=== PATIENT | female | born 1940 | race Caucasian/White ===

== ENCOUNTER 2019-05-12 18:27 | Emergency (ER) ==
[2019-05-12 18:33] VITALS: TEMP 99.4; BMI 18.0
[2019-05-12] MEDS ORDERED: NORFLEX IM STA (18:48)
[2019-05-12] MEDS ORDERED: NORCO 5-325 PO STA (18:48)
[2019-05-12] MEDS ORDERED: CATAPRES PO STA (18:51)
--- NOTE | 2019-05-12 19:25 | CT ---
EXAM: CT of the cervical spine without contrast. HISTORY: Pain. No history of trauma. PROCEDURE: Contiguous axial CT images of the cervical spine with coronal and sagittal reformats. FINDINGS: There is 2 mm anterolisthesis of C4 on C5. There is normal alignment of the cervical facet s. The vertebral body heights are maintained. There is multilevel disc space narrowing. There are posterior osteophytes at multiple levels of the cervical spine. There are small disc bulges at C2-3, C4-5 and C5-6. There is multilevel facet arthropathy. No evidence of fracture. The C1-2 relations hip is maintained. No prevertebral soft tissue abnormality. Impression: Multilevel disc bulges as described. 2 mm anterolisthesis of C4 on C5 secondary to facet arthropathy. Multilevel degenerative changes as described.
--- NOTE | 2019-05-12 19:48 | ED.PDOC ---
General ED Provider: Dr. MYRNA MARIA-ER Chief Complaint: Neck Pain Non-Injury Stated Complaint: my neck hurts to move Time Seen by Physician: 18:40 Mode of Arrival: Walk-In Information Source: Patient, Family Exam Limitations: No limitations Nursing and Triage Documentation Reviewed and Agree: Yes Does patient meet sepsis criteria?: No System Inflammatory Response Syndrome: Not Applicable Sepsis Protocol: For patient's 13 years and over: Temp is 96.8 and below OR 101 and greater Pulse >90 BPM Resp >20/minute Acutely Altered Mental Status Are patient's symptoms suggestive of a new infection, such as: -Pneumonia -Skin, Soft Tissue -Endocarditis -UTI -Bone, Joint Infection -Implantable Device -Acute Abdominal Infection -Wound Infection -Meningitis -Blood Stream Catheter Infection -Unknown Musculoskeletal Complaint Exam - Neck Pain Complaint/Exam Mechanism of Injury: Reports: No known trauma Onset/Duration: several hours Symptoms Are: Still present Timing: Constant Initial Severity: Mild Current Severity: Mild Location: Reports: Discrete (right posterior neck) Character: Reports: Dull, Aching, Spasmodic, Stiffness Aggravating: Reports: Movement Alleviating: Reports: None Associated Signs and Symptoms: Denies: Swelling, Redness, Bruising, Fever, Nuchal rigidity, Weakness, Headache, Paresthesia Meningitis Risk Factors: Reports: None Cervical Spine Injury Risk Factors: Reports: None Related Surgical History: Reports: None Carotid Bruit Present: No Pain on Passive Flexion: Yes Positive Kernig's Sign: No ROM Limited In: Present: Flexion, Extension Pain Located at: right posterior neck Tenderness: Present: Paraspinal Focal Weakness: Present: None Focal Sensory Loss: Reports: None Differential Diagnoses: Sprain, Strain Review of Systems - Review Of Systems Constitutional: Reports: No symptoms Eyes: Reports: No symptoms Ears, Nose, Mouth, Throat: Reports: No symptoms Respiratory: Reports: No symptoms Cardiac: Reports: No symptoms GI: Reports: No symptoms : Reports: No symptoms Musculoskeletal: Reports: Muscle pain, Muscle stiffness, Neck pain Skin: Reports: No symptoms Neurological: Reports: No symptoms Endocrine: Reports: No symptoms Hematologic/Lymphatic: Reports: No symptoms All Other Systems: Reviewed and Negative Past Medical History - Past Medical History Previously Healthy: No Endocrine: Reports: Other Cardiovascular: Reports: A-Fib Respiratory: Reports: Unknown Hematological: Reports: Unknown Gastrointestinal: Reports: Unknown Genitourinary: Reports: Unknown Neuro/Psych: Reports: Unknown Musculoskeletal: Reports: Unknown Cancer: Reports: Unknown Last Menstrual Period: menopause - Surgical History General Surgical History: Reports: Unknown - Family History Family History: Reports: Unknown - Social History Smoking Status: Never smoker Hx Substance Use: No Alcohol Screening: None Physical Exam - Physical Exam Appearance: Well-appearing, No pain distress, Well-nourished Pain Distress: Mild Eyes: [place], EOMI, Conjunctiva clear ENT: Ears normal, Nose normal, Oropharynx normal Neck: Supple Respiratory: Airway patent, Breath sounds clear, Breath sounds equal, Respirations nonlabored Cardiovascular: RRR, Pulses normal, No rub, No murmur GI/: Soft, Nontender, No masses, Bowel sounds normal, No Organomegaly Musculoskeletal: Limited ROM Skin: Warm Neurological: Sensation intact Psychiatric: Affect appropriate, Mood appropriate, Anxious Interpretation - Radiology Interpretation Radiology Interpretation By: Radiologist Radiology Results: Positive Exam Interpreted: CT Scan Critical Care Note - Critical Care Note Total Time (mins): 0 Course - Course Orders, Labs, Meds: Orders Category Date Time Status 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] .ONCE EMERGENCY 05/12/19 19:03 Active Clonidine HCl [Catapres] MEDS 05/12/19 18:51 Discontinued 0.1 mg PO ONCE STA Hydrocodone Bit/Acetaminophen [[place] 5-325] MEDS 05/12/19 18:48 Discontinued 0.5 tab PO ONCE STA Orphenadrine Citrate [Norflex] MEDS 05/12/19 18:48 Discontinued 60 mg IM ONCE STA CT CERVICAL SPINE W/O CONTRAST Stat RADS 05/12/19 18:48 Completed Medications Discontinued Medications Generic Name Dose Route Start Last Admin Trade Name Debbie PRN Reason Stop Dose Admin Hydrocodone Bitart/Acetaminophen 0.5 tab 05/12/19 18:48 05/12/19 19:08 [place] 5-325 PO 05/12/19 18:49 0.5 tab ONCE STA Administration Clonidine 0.1 mg 05/12/19 18:51 05/12/19 19:06 Catapres PO 05/12/19 18:52 0.1 mg ONCE STA Administration Orphenadrine Citrate 60 mg 05/12/19 18:48 05/12/19 19:10 Norflex IM 05/12/19 18:49 60 mg ONCE STA Administration Vital Signs: Temp Pulse Resp BP Pulse Ox 05/12/19 18:55 217/88 H 05/12/19 18:27 99.4 F 66 20 205/71 H 95 Departure - Departure Time of Disposition: 19:50 Disposition: HOME SELF-CARE Discharge Problem: Neck pain Instructions: Acute Neck Pain (ED), Neck Pain (ED) Condition: Good Pt referred to PMD for follow-up: Yes IPMP verified?: No Allergies/Adverse Reactions: Allergies antibiotics Adverse Reaction (Uncoded 05/12/19 18:36) pain meds Adverse Reaction (Uncoded 05/12/19 18:36) Home Medications: Ambulatory Orders Apixaban [Eliquis] 5 mg PO BID 05/12/19 Digoxin 125 mcg PO DAILY 05/12/19 Disposition Discussed With: Patient, Family
[2019-05-12 19:50] VITALS: BP 199/81
== END 2019-05-12 20:10 | disposition home or self-care (01) ==
LOC: ED 18:27
DX: M54.2 Cervicalgia (principal)
CPT/HCPCS: 96372; 99283

== ENCOUNTER 2021-05-06 08:33 | Inpatient (IN) ==
--- NOTE | 2021-05-06 08:58 | ED.PDOC ---
General ED Provider: Dr. MAHSA PHILLIPS Chief Complaint: Arrhythmia Stated Complaint: Palpitations Time Seen by Provider: 05/06/21 08:45 Mode of Arrival: Walk-In Information Source: Patient Exam Limitations: No limitations Primary Care Provider: HERB PANDYA - not established yet. Nursing and Triage Documentation Reviewed and Agree: Yes Does patient meet sepsis criteria?: No System Inflammatory Response Syndrome: Not Applicable Sepsis Protocol: For patient's 13 years and over: Temp is 96.8 and below OR 101 and greater Pulse >90 BPM Resp >20/minute Acutely Altered Mental Status Are patient's symptoms suggestive of a new infection, such as: -Pneumonia -Skin, Soft Tissue -Endocarditis -UTI -Bone, Joint Infection -Implantable Device -Acute Abdominal Infection -Wound Infection -Meningitis -Blood Stream Catheter Infection -Unknown Cardiovascular Complaint Exam Palpitations Complaint/Exam Onset/Duration: During the night. Symptoms Are: Still present Timing: Constant Initial Severity: Moderate Current Severity: Moderate Character: Reports Fast and Irregular Aggravating: Reports None Alleviating: Reports None Associated Signs and Symptoms: Reports Dizziness (minor); Denies Lightheadedness, Syncope, Chest pain, Shortness of breath, Diaphoresis, Nausea and Vomiting Related History: Similar episode (Apparently not, poor historian.) Related Surgical History: Reports None Cardiac Risk Factors: Reports Hypertension Pulmonary Embolism Risk Factors: Reports None Atrial Fibrillation Risk Factors: Reports Hypertension Thyroid Exam: Normal Differential Diagnoses: Cardiomyopathy, Medication induced, Myocarditis, Panic Disorder, Hyperventilation, Paroxysmal SVT, VT and Pulmonary Embolismn Quality Indicator For Non-Traumatic Chest Pain/Syncope: EKG Performed Review of Systems Review Of Systems Constitutional: Reports No symptoms Eyes: Reports No symptoms Ears, Nose, Mouth, Throat: Reports No symptoms Respiratory: Reports No symptoms Cardiac: Reports Irregular heart rate and Palpitations GI: Reports No symptoms : Reports No symptoms Musculoskeletal: Reports No symptoms Skin: Reports No symptoms Neurological: Reports No symptoms Endocrine: Reports No symptoms Hematologic/Lymphatic: Reports No symptoms All Other Systems: Reviewed and Negative PFSH Female Reproductive History Menstrual Hx Hysterectomy: Yes Hx Tubal Ligation: No Physical Exam Physical Exam Appearance: Reports Well-appearing and Thin Ill-appearing: None Pain Distress: None Eyes: Reports [place] ENT: Reports Oropharynx normal Neck: Supple Respiratory: Reports Airway patent, Breath sounds clear and Breath sounds equal Cardiovascular: Reports Irregular rhythm and Tachycardia GI/: Reports Soft and Nontender Musculoskeletal: Reports Normal strength, ROM intact and No edema Skin: Reports Warm, Dry and Normal color Neurological: Reports Sensation intact, Motor intact, Alert and Oriented Psychiatric: Reports Affect appropriate and Mood appropriate Interpretation Radiology Interpretation Radiology Interpretation By: Radiologist Radiology Results: Positive Exam Interpreted: Portable CXR Xray Comments: CMG without CHF 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 Gardner Time of Notification: 11:30 Admit/Transition Orders Entered by ED Provider: Yes Reviewed With: Dr. Gadrner Admit To: Inpatient Critical Care Note Critical Care Note Total Critical Care Time (mins): 30 Comments: Diagnosis and management of Atrial fibrillation with rapid ventricular rate. Stat medications, evaluation, consult with PCP. Course Course Hematology/Chemistry: 05/06/21 09:14 05/06/21 09:14 Orders, Labs, Meds: Lab Review 05/06/21 05/06/21 05/06/21 09:14 09:14 09:14 WBC 5.46 RBC 4.18 L Hgb 12.9 Hct 37.6 MCV 90.0 MCH 30.9 MCHC 34.3 RDW Coeff of Philippe 13.2 Plt Count 192 Immature Gran % (Auto) 0.2 Neut % (Auto) 75.8 H Lymph % (Auto) 16.8 [place] % (Auto) 6.8 Eos % (Auto) 0.2 Baso % (Auto) 0.2 Neut # (Auto) 4.1 Lymph # (Auto) 0.9 [place] # (Auto) 0.4 Eos # (Auto) 0.0 Baso # (Auto) 0.0 Immature Gran # (Auto) 0.0 PT 10.3 INR 0.97 APTT 25.4 Sodium 135.2 Potassium 4.01 Chloride 100.2 Carbon Dioxide 27.8 Anion Gap 11.21 BUN 17.2 H Creatinine 0.68 Estimated GFR (MDRD) 83.00 BUN/Creatinine Ratio 25.29 Glucose 108.7 H Calcium 9.34 Total Bilirubin 0.45 AST 57.8 H ALT 65.9 H Alkaline Phosphatase 120.4 Troponin I < 0.012 NT-Pro-B Natriuret Pep 1980.000 H Total Protein 6.83 Albumin 4.42 Globulin 2.41 Albumin/Globulin Ratio 1.83 Orders Category Date Time Status EKG-(ED ONLY) Stat CARDIO 05/06/21 08:58 Ordered Saline Lock [ED IV/MEDIPORT/POWERPORT] .ONCE EMERGENCY 05/06/21 08:58 Active CBC W/ AUTO DIFF Stat LAB 05/06/21 08:58 Ordered COMPREHENSIVE METABOLIC PANEL Stat LAB 05/06/21 09:14 Received NT-PROBNP Stat LAB 05/06/21 09:14 Received PARTIAL THROMBOPLASTIN TIME Stat LAB 05/06/21 09:14 Received PT WITH INR Stat LAB 05/06/21 09:14 Received TROPONIN I Stat LAB 05/06/21 09:14 Received 0.9 % Sodium Chloride [Saline Flush] MEDS 05/06/21 08:58 Active 1 syr IVF PRN PRN Aspirin [Aspirin Chewable] MEDS 05/06/21 09:20 Discontinued 81 mg PO ONCE ONE Diltiazem HCl [Cardizem Inj] MEDS 05/06/21 09:20 Discontinued 15 mg IVP ONCE ONE Diltiazem HCl [Cardizem] 125 mg MEDS 05/06/21 10:00 Active 0.9 % Sodium Chloride [Sodium Chloride] 100 ml IV TITRATION CHEST, 1V AP ONLY Stat RADS 05/06/21 08:58 Ordered Medications Generic Name Dose Route Start Last Admin Trade Name Freq PRN Reason Stop Dose Admin Diltiazem HCl 125 mg/ Sodium 125 mls @ 5 mls/hr 05/06/21 10:00 05/06/21 10:19 Chloride IV 5 mg/hr TITRATION CHINTAN 5 mls/hr Administration Protocol 5 MG/HR Sodium Chloride 1 syr 05/06/21 08:58 05/06/21 09:35 0.9% Sodium Chloride 10 Ml Disp.Syrin IVF 1 syr PRN PRN Administration To flush IV Discontinued Medications Generic Name Dose Route Start Last Admin Trade Name Freq PRN Reason Stop Dose Admin Aspirin 81 mg 05/06/21 09:20 05/06/21 09:27 Aspirin 81 Mg Tab.Chew PO 05/06/21 09:21 81 mg ONCE ONE Administration Diltiazem HCl 15 mg 05/06/21 09:20 05/06/21 09:28 Diltiazem Hcl Inj 25 Mg/5 Ml Vial IVP 05/06/21 09:21 15 mg ONCE ONE Administration Vital Signs: Temp Pulse Resp BP Pulse Ox 05/06/21 08:41 98.0 F 149 H 20 160/99 H 99 CHRISTIAN Risk Score CHRISTIAN Risk Score: Risk Score Odds of by 30D 0 0.1 (0.1-0.2) 1 0.3 (0.2-0.3) 2 0.4 (0.3-0.5) 3 0.7 (0.6-0.9) 4 1.2 (1.0-1.5) 5 2.2 (1.9-2.6) 6 3.0 (2.5-3.6) 7 4.8 (3.8-6.1) Discharge Plan Discharge Patient Disposition: ADMITTED INPATIENT Discharge Problem: Atrial fibrillation with rapid ventricular response ED Provider: MAHSA PHILLIPS Condition: Stable Physician Progress Note: [She is new onset Afib RVR responding to cardizem IV. No established PCP, her sees Dr. Gardner and they want him contacted and he accepted. Work-up unremarkable. Dr. Gardner assumed her care while she was still in ED. He wanted her to have a dose of oral cardizem, I placed the order. Patient stable. Going to med surg on telemetry.]
[2021-05-06 09:18] LABS: BASOPHILS % (AUTO) 0.2 % (0.0-3.0); EOSINOPHILS % (AUTO) 0.2 % (0.0-7.0); HEMATOCRIT 37.6 % (37.0-47.0); HEMOGLOBIN 12.9 g/dl (12.0-16.0); IMMATURE GRANULOCYTE % (AUTO) 0.2 % (0.0-5.0); LYMPHOCYTES # (AUTO) 0.9 K/uL (0.60-3.4); LYMPHOCYTES % (AUTO) 16.8 (10.0-50.0); MEAN CORPUSCULAR HEMOGLOBIN 30.9 pg (27.0-31.0); MEAN CORPUSCULAR HGB CONC 34.3 (31.8-35.4); MONOCYTES # (AUTO) 0.4 K/uL (0.4-2.0); MONOCYTES % (AUTO) 6.8 (0-10); NEUTROPHILS # (AUTO) 4.1 K/ul (2.0-6.9); NEUTROPHILS % (AUTO) 75.8 % (42.2-75.2); PLATELET COUNT 192 10^3/uL (140-440); RDW COEFFICIENT OF VARIATION 13.2 % (11.6-14.8); RED BLOOD COUNT 4.18 10^6/ul (4.20-5.40); WHITE BLOOD COUNT 5.46 K/ul (4.6-10.2)
[2021-05-06] MEDS ORDERED: ASPIRIN CHEWABLE PO ONE (09:20)
[2021-05-06] MEDS ORDERED: CARDIZEM INJ IVP ONE (09:20)
[2021-05-06 09:30] LABS: ALANINE AMINOTRANSFERASE 65.9 U/L (0-35); ALBUMIN 4.42 g/dL (3.5-5.0); ALKALINE PHOSPHATASE 120.4 U/L (53-141); ASPARTATE AMINO TRANSFERASE 57.8 U/L (14-36); BILIRUBIN,TOTAL 0.45 mg/dL (0.2-1.3); BLOOD UREA NITROGEN 17.2 mg/dL (7-17); CALCIUM 9.34 mg/dL (8.4-10.2); CARBON DIOXIDE 27.8 mmol/L (22-30.0); CHLORIDE 100.2 mmol/L (98-107); CREATININE 0.68 mg/dL (0.60-1.30); GLUCOSE 108.7 mg/dL (74-106); POTASSIUM 4.01 mmol/L (3.5-5.1); SODIUM 135.2 mmol/L (134.5-145); TOTAL PROTEIN 6.83 g/dL (6.3-8.2)
[2021-05-06 09:32] LABS: PARTIAL THROMBOPLASTIN TIME 25.4 SEC (23.9-40.0); PROTHROMBIN TIME 10.3 SEC (9.3-11.0)
--- NOTE | 2021-05-06 09:36 | DI ---
EXAM: CHEST FRONTAL VIEW HISTORY: Palpitations COMPARISON: None FINDINGS: Prominent heart size. There is at least mild atherosclerotic disease. No acute infiltrat es are seen. No vascular congestion. There is no consolidation, visible pleural fluid or pneumothor ax. Bones reveal no acute fracture. IMPRESSION: Prominent heart size. No vascular congestion or acute infiltrates.
[2021-05-06 09:42] LABS: TROPONIN I < 0.012 ng/ml (0.0000-0.120)
[2021-05-06] MEDS ORDERED: CARDIZEM 125 MG in SODIUM CHLORIDE 100 ML IV SCH ×2 (10:00→15:00)
[2021-05-06] MEDS ORDERED: LOVENOX SUBCUT ONE (11:21)
[2021-05-06] MEDS ORDERED: ATROPINE SULFATE PFS IVP PRN ×2 (11:47→14:19)
[2021-05-06] MEDS ORDERED: NITROSTAT SL PRN ×2 (11:47→14:19)
[2021-05-06] MEDS ORDERED: TYLENOL PO PRN ×3 (11:47→21:27)
[2021-05-06 11:51] LABS: BORDETELLA PARAPERTUSSIS (PCR) NOT DETECTED (NOT DETECT); BORDETELLA PERTUSSIS (PCR) NOT DETECTED (NOT DETECT); CHLAMYDIA PNEUMONIAE (PCR) NOT DETECTED (NOT DETECT); CORONAVIRUS 229E (PCR) NOT DETECTED (NOT DETECT); CORONAVIRUS HKU1 (PCR) NOT DETECTED (NOT DETECT); CORONAVIRUS NL63 (PCR) NOT DETECTED (NOT DETECT); CORONAVIRUS OC43 (PCR) NOT DETECTED (NOT DETECT); HUMAN METAPNEUMOVIRUS (PCR) NOT DETECTED (NOT DETECT); HUMAN RHINOVIRUS/ENTEROV (PCR) NOT DETECTED (NOT DETECT); INFLUENZA B (PCR) NOT DETECTED (NOT DETECT); MYCOPLASMA PNEUMONIAE (PCR) NOT DETECTED (NOT DETECT); PARAINFLUENZA VIRUS 1 (PCR) NOT DETECTED (NOT DETECT); PARAINFLUENZA VIRUS 2 (PCR) NOT DETECTED (NOT DETECT); PARAINFLUENZA VIRUS 3 (PCR) NOT DETECTED (NOT DETECT); PARAINFLUENZA VIRUS 4 (PCR) NOT DETECTED (NOT DETECT); RESPIRATORY SYNCYTIAL V (PCR) NOT DETECTED (NOT DETECT); SARS_COV_2 (PCR) NOT DETECTED (NOT DETECT)
[2021-05-06] MEDS ORDERED: CARDIZEM CD PO SCH (12:30)
[2021-05-06 12:38] LABS: ADENOVIRUS (PCR) NOT DETECTED (NOT DETECT)
[2021-05-06 13:32] VITALS: BMI 17.2
[2021-05-06 15:06] LABS: CREATINE KINASE 63.7 U/L (30-135)
[2021-05-06 15:37] LABS: THYROID STIMULATING HORMONE 3.41 uIU/L (0.465-4.68)
[2021-05-06] MEDS: CARDIZEM PO SCH ×2 (15:52→21:02)
[2021-05-06 17:23] LABS: BILIRUBIN,URINE Negative (NEGATIVE); CLARITY,URINE Clear (CLEAR); COLOR,URINE Yellow (YELLOW); GLUCOSE, URINE (UA) Negative (NEGATIVE); KETONES,URINE 1+ (NEGATIVE); LEUKOCYTE ESTERASE ,URINE Negative (NEGATIVE); NITRITE,URINE Negative (NEGATIVE); PROTEIN,URINE Negative (NEGATIVE); URINE, BLOOD Trace-lysed (NEGATIVE); UROBILINOGEN,URINE 0.2 (0.2)
[2021-05-06 17:27] LABS: CREATINE KINASE 49.2 U/L (30-135)
[2021-05-06 17:33] LABS: SQUAMOUS EPITHELIAL CELL,UR NOT PRESENT (0-5)
[2021-05-06 17:34] LABS: URINE RBC, MICROSCOPIC 0-2 (0-2); URINE WBC, MICROSCOPIC 0-2 (0-2)
[2021-05-06 17:41] LABS: TROPONIN I < 0.012 ng/ml (0.0000-0.120)
[2021-05-06] MEDS ORDERED: CORDARONE PO SCH (21:00)
[2021-05-06] MEDS ORDERED: ELIQUIS PO SCH (21:00)
[2021-05-06] MEDS ORDERED: CARDIZEM PO SCH (21:00)
[2021-05-06] MEDS: ELIQUIS PO SCH (21:01)
[2021-05-06] MEDS: TAMBOCOR PO SCH (22:15)
[2021-05-07 01:37] LABS: BASOPHILS % (AUTO) 0.5 % (0.0-3.0); EOSINOPHILS % (AUTO) 0.9 % (0.0-7.0); HEMATOCRIT 32.7 % (37.0-47.0); HEMOGLOBIN 11.3 g/dl (12.0-16.0); IMMATURE GRANULOCYTE % (AUTO) 0.7 % (0.0-5.0); LYMPHOCYTES # (AUTO) 1.6 K/uL (0.60-3.4); LYMPHOCYTES % (AUTO) 38.8 (10.0-50.0); MEAN CORPUSCULAR HEMOGLOBIN 30.9 pg (27.0-31.0); MEAN CORPUSCULAR HGB CONC 34.6 (31.8-35.4); MEAN CORPUSCULAR VOLUME 89.3 fl (81.0-99.0); MONOCYTES # (AUTO) 0.4 K/uL (0.4-2.0); NEUTROPHILS # (AUTO) 2.1 K/ul (2.0-6.9); NEUTROPHILS % (AUTO) 50.1 % (42.2-75.2); PLATELET COUNT 188 10^3/uL (140-440); RDW COEFFICIENT OF VARIATION 13.2 % (11.6-14.8); RED BLOOD COUNT 3.66 10^6/ul (4.20-5.40); WHITE BLOOD COUNT 4.23 K/ul (4.6-10.2)
[2021-05-07 01:40] LABS: ALANINE AMINOTRANSFERASE 50.6 U/L (0-35); ALBUMIN 3.66 g/dL (3.5-5.0); ALKALINE PHOSPHATASE 96.3 U/L (53-141); ASPARTATE AMINO TRANSFERASE 42.7 U/L (14-36); BILIRUBIN,TOTAL 0.35 mg/dL (0.2-1.3); BLOOD UREA NITROGEN 22.8 mg/dL (7-17); CARBON DIOXIDE 25.8 mmol/L (22-30.0); CHLORIDE 100.6 mmol/L (98-107); CREATINE KINASE 51.8 U/L (30-135); CREATININE 0.83 mg/dL (0.60-1.30); GLUCOSE 100.1 mg/dL (74-106); POTASSIUM 4.05 mmol/L (3.5-5.1); SODIUM 131.2 mmol/L (134.5-145); TOTAL PROTEIN 5.71 g/dL (6.3-8.2)
[2021-05-07 01:52] LABS: TROPONIN I < 0.012 ng/ml (0.0000-0.120)
[2021-05-07] MEDS: CARDIZEM PO SCH ×3 (08:15→20:07)
[2021-05-07] MEDS: TAMBOCOR PO SCH ×2 (08:15→20:07)
[2021-05-07] MEDS: ELIQUIS PO SCH ×2 (08:16→20:07)
--- NOTE | 2021-05-07 10:25 | PCM.PROG ---
Attending Provider: ATTENDING PROVIDER: Dr. GLENNY GARDNER This patient is seen with Carmelita Harry, Nurse Practitioner. DATE OF SERVICE: 05/07/21 SUBJECTIVE: This 80 year old /WHITE F was hospitalized 05/06/21. The patient is sitting in chair resting comfortably. Heart rate has been controlled. The patient seems to be tolerating medications. REVIEW OF SYSTEMS: CONSTITUTIONAL: No night sweats. No fatigue, malaise, lethargy. No fever or chills. HEENT: Eyes: No visual changes. No eye pain. No eye discharge. ENT: No runny nose. No epistaxis. No sinus pain. No odynophagia. No congestion. RESPIRATORY: No cough, no congestion. No hemoptysis. No shortness of breath. CARDIOVASCULAR: Palpitations. No angina symptoms. No CHF symptoms. No atypical chest pain for CAD. No orthopnea. GASTROINTESTINAL: No abdominal pain. No nausea or vomiting. No diarrhea or constipation. No hematemesis. No hematochezia. GENITOURINARY: No urgency. No frequency. No dysuria. No hematuria. No obstructive symptoms. No discharge. No pain. No significant abnormal bleeding. MUSCULOSKELETAL: No musculoskeletal pain; no joint swelling. NEUROLOGICAL: Awake, alert, oriented to time, place and person. No headache. No neck pain. No syncope. No seizures. No dizziness. PSYCHIATRIC: Not anxious. No depression. No suicidal thoughts. No homicidal thoughts. SKIN: No rash. No lesions. No wounds. ENDOCRINE: No unexplained weight loss. No weight gain. HEMATOLOGIC/LYMPHATIC: No anemia. No purpura. No petechiae. No prolonged or excessive bleeding. No palpable lymph nodes. PHYSICAL EXAMINATION: GENERAL: The patient is awake, alert and oriented, lying/sitting in bed in no distress. VITAL SIGNS: Temperature 98.2 F, Pulse 96, Respiratory Rate 18, BP 133/79, Pulse Ox 98% HEENT: Head normocephalic, atraumatic. Eyes: Extraocular muscles are intact. Pupils are equal, round and reactive to light and accommodation. Ears: No lesions. Nose appeared normal. Throat: No exudate or erythema. NECK: Supple. No JVD, no carotid bruit. No lymphadenopathy or thyromegaly. LUNGS: Diminished breath sounds. Clear to auscultation. Percussion note normal. Chest symmetrical. HEART: Irregular heart rate. S1, S2, no S3. No murmurs. No cyanosis or clubbing. No ascites. Pulses: Dorsalis pedis and posterior tibial pulses +1 to +2 both sides. ABDOMEN: Soft. Non-tender. Bowel sounds active. No CVA tenderness. No mass felt. EXTREMITIES: No edema. Full range of motion of all extremities, equal. NEUROLOGIC: No focal deficit. Cranial nerves II through XII are grossly intact. No headache. No double vision. SKIN: Not dry. Intact. Turgor-normal. LYMPHATIC: No palpable lymph nodes/no lymphedema. MUSCULOSKELETAL: Normal joints with no swelling. Muscle tone is normal. LAB REVIEW: 05/07/21 01:15 05/07/21 01:15 05/07/21 01:15: WBC 4.23 L, RBC 3.66 L, Hgb 11.3 L, Hct 32.7 L, MCV 89.3, MCH 30.9, MCHC 34.6, RDW Coeff of Philippe 13.2, Plt Count 188, Immature Gran % (Auto) 0.7, Neut % (Auto) 50.1, Lymph % (Auto) 38.8, [place] % (Auto) 9.0, Eos % (Auto) 0.9, Baso % (Auto) 0.5, Neut # (Auto) 2.1, Lymph # (Auto) 1.6, [place] # (Auto) 0.4, Eos # (Auto) 0.0, Baso # (Auto) 0.0, Immature Gran # (Auto) 0.0 05/07/21 01:15: Sodium 131.2 L, Potassium 4.05, Chloride 100.6, Carbon Dioxide 25.8, Anion Gap 8.85, BUN 22.8 H, Creatinine 0.83, Estimated GFR (MDRD) 66.00, BUN/Creatinine Ratio 27.46, Glucose 100.1, Calcium 8.70, Total Bilirubin 0.35, AST 42.7 H, ALT 50.6 H, Alkaline Phosphatase 96.3, Total Creatine Kinase 51.8, Troponin I < 0.012, Total Protein 5.71 L, Albumin 3.66, Globulin 2.05, Albumin/Globulin Ratio 1.78 05/06/21 17:14: Total Creatine Kinase 49.2, Troponin I < 0.012 05/06/21 16:28: Urine Color Yellow, Urine Clarity Clear, Urine pH 7.0, Ur Specific Carmi 1.015, Urine Protein Negative, Urine Glucose (UA) Negative, Urine Ketones 1+ H, Urine Blood Trace-lysed, Urine Nitrite Negative, Urine Bilirubin Negative, Urine Urobilinogen 0.2, Ur Leukocyte Esterase Negative, Uri ne Microscopic RBC 0-2, Urine Microscopic WBC 0-2, Ur Squamous Epith Cells Not present 05/06/21 11:45: Adenovirus (PCR) Not detected, B. pertussis DNA (PCR) Not detected, B.parapertussis DNA PCR Not detected, C. pneumoniae DNA (PCR) Not detected, Coronavirus OC43 (PCR) Not detected, Coronavirus HKU1 (PCR) Not detected, Coronavirus 229E (PCR) Not detected, Coronavirus NL63 (PCR) Not detected, Human Metapneumovir PCR Not detected, Influenza Type A (PCR) Not detected, Influenza B (RT-PCR) Not detected, M. pneumoniae (PCR) Not detected, Parainfluenza 1 (PCR) Not detected, Parainfluenza 2 (PCR) Not detected, Parainfluenza 3 (PCR) Not detected, Parainfluenza 4 (PCR) Not detected, RSV (PCR) Not detected, Entero/Rhino (PCR) Not detected, SARS-CoV-2 (PCR) Not detected 05/06/21 09:14: Total Creatine Kinase 63.7, TSH 3.410 05/06/21 09:14: Free T4 1.52 05/06/21 09:14: Sodium 135.2, Potassium 4.01, Chloride 100.2, Carbon Dioxide 27.8, Anion Gap 11.21, BUN 17.2 H, Creatinine 0.68, Estimated GFR (MDRD) 83.00, BUN/Creatinine Ratio 25.29, Glucose 108.7 H, Calcium 9.34, Total Bilirubin 0.45, AST 57.8 H, ALT 65.9 H, Alkaline Phosphatase 120.4, Troponin I < 0.012, NT-Pro-B Natriuret Pep 1980.000 H, Total Protein 6.83, Albumin 4.42, Globulin 2.41, Albumin/Globulin Ratio 1.83 05/06/21 09:14: PT 10.3, INR 0.97, APTT 25.4 05/06/21 09:14: WBC 5.46, RBC 4.18 L, Hgb 12.9, Hct 37.6, MCV 90.0, MCH 30.9, MC HC 34.3, RDW Coeff of Philippe 13.2, Plt Count 192, Immature Gran % (Auto) 0.2, Neut % (Auto) 75.8 H, Lymph % (Auto) 16.8, [place] % (Auto) 6.8, Eos % (Auto) 0.2, Baso % (Auto) 0.2, Neut # (Auto) 4.1, Lymph # (Auto) 0.9, [place] # (Auto) 0.4, Eos # (Auto) 0.0, Baso # (Auto) 0.0, Immature Gran # (Auto) 0.0 ASSESSMENT: Please see below. 1. New onset atrial fibrillation with RVR. 2. Hyponatremia. 3. History of noncompliance with medications recommendations and followup. 4. Risks associated with atrial fibrillation such as blood clot and CVA discussed in detail. 5. The patient has a history of noncompliance with medications. She states she likes to take natural alternatives. She had previously been seen by Dr. Patel. PLAN: 1. Lipids. 2. A1C. 3. 2D echocardiogram. Plan and coordination of the patient's care discussed in the presence of Building And Construction Manager and nurse. CONDITION: Stable SCRIBED BY: Erendira WILSONist scribed while in presence of service performed by Dr. Gardner/Carmelita Harry APRN on 05/07/21 ([id number])
--- NOTE | 2021-05-07 10:57 | HP ---
DATE OF SERVICE: 05/06/21 HISTORY OF PRESENT ILLNESS: This is an 80-year-old white female who is not an established patient of ours. Her is our established patient. She began experiencing some palpitations today, has presented to the Emergency Room here at [facility] and the has asked for us to take over her care and we have agreed. It is to be noted that the patient has not seen a medical doctor in some time. She had previously, according to the patient, had an episode of atrial fibrillation but stopped all of her medication. She also apparently has had a history of hyperthyroidism but is no longer taking medication. Again, this is the first time for us seeing this patient. The patient started experiencing palpitations through the night which have persisted. She reports fast and irregular heart rate with some weakness. PAST MEDICAL HISTORY: Atrial fibrillation Hyperthyroidism History of noncompliance with medications, lifestyle and followup PAST SURGICAL HISTORY: Tonsillectomy Hysterectomy REVIEW OF SYSTEMS: CONSTITUTIONAL: Weakness. No night sweats. No fatigue, malaise, lethargy. No fever or chills. HEENT: Eyes: No visual changes. No eye pain. No eye discharge. ENT: No runny nose. No epistaxis. No sinus pain. No sore throat. No odynophagia. No ear pain. No congestion. RESPIRATORY: No cough, no congestion. No hemoptysis. Mild shortness of breath. CARDIOVASCULAR: No angina symptoms. No CHF symptoms. No atypical chest pain for CAD. Positive for palpitations. No PND. No orthopnea. GASTROINTESTINAL: No abdominal pain. No nausea or vomiting. No diarrhea or constipation. No hematemesis. No hematochezia. GENITOURINARY: No urgency. No frequency. No dysuria. No hematuria. No obstructive symptoms. No discharge. No pain. No significant abnormal bleeding. MUSCULOSKELETAL: No musculoskeletal pain. No joint swelling. No arthritis. NEUROLOGICAL: No headache. No neck pain. No syncope. No seizures. No dizziness. PSYCHIATRIC: Not anxious. No depression. No suicidal thoughts. No homicidal thoughts. SKIN: No rash. No lesions. No wounds. ENDOCRINE: No unexplained weight loss. No weight gain. HEMATOLOGIC/LYMPHATIC: No anemia. No purpura. No petechiae. No prolonged or excessive bleeding. No palpable lymph nodes. PERSONAL/FAMILY/SOCIAL HISTORY: The patient states her mother had cancer - GI, coronary artery disease in her brother. Social History: She is . No alcohol or illicit drug use. She is a nonsmoker. MEDICATIONS: None ALLERGIES: ANTIBIOTICS, PAIN MEDS PHYSICAL EXAMINATION: GENERAL: Alert and oriented times three. VITAL SIGNS: Temperature 98, heart rate 149, respirations 20, BP 160/99, pulse ox 99%. HEENT: Head normocephalic, atraumatic. Eyes: Extraocular muscles are intact. Pupils are equal, round and reactive to light and accommodation. Ears: No lesions. Nose appeared normal. Throat: No exudate or erythema. NECK: Supple. No JVD, no carotid bruit. No lymphadenopathy or thyromegaly. LUNGS: Diminished breath sounds. Clear to auscultation. Percussion note normal. Chest symmetrical. HEART: Irregular heart rate. S1, S2, no S3. No murmur. No cyanosis or clubbing. No ascites. Pulses: Dorsalis pedis and posterior tibial pulses +1 to +2 bilaterally. ABDOMEN: Soft. Nontender. Bowel sounds active. No CVA tenderness. No mass felt. EXTREMITIES: No edema. Full range of motion of all extremities, equal. NEUROLOGIC: No focal deficit. Cranial nerves II through XII are grossly intact. No headache, no double vision or headache. SKIN: Not dry. Intact. Turgor - normal. LYMPHATIC: No palpable lymph nodes/no lymphedema. MUSCULOSKELETAL: Normal joints with no swelling. Muscle tone is normal. EKG shows atrial fibrillation with RVR. White count 5.46, hemoglobin 12.9, hematocrit 37.6, platelets 192. Sodium 135, potassium 4.0, BUN 17, creatinine 0.68, glucose 108, INR 0.97, AST 57.8, ALT 65.9, troponin less than 0.012, NT-Pro-BNP 1,980, total protein 6.8, albumin 4.4. ASSESSMENT: 1. New onset atrial fibrillation with rapid ventricular response. 2. Hypertension. 3. Apparent history of noncompliance with medications, lifestyle and followup. PLAN: 1. We will admit. 2. Routine telemetry orders. 3. CBC, CMP daily. 4. Start Cardizem drip at 10 mg/hr. The patient received 120 mg of Cardizem p.o. in the emergency room. 5. T4, TSH. 6. She is to start on Cardizem 60 mg p.o. t.i.d. 7. Amiodarone 200 mg p.o. t.i.d. 8. Eliquis 2.5 mg p.o. b.i.d. according to weight and age. 9. 2D echocardiogram. 10. Regular diet. 11. Oxygen at 1 to 2L via nasal cannula if needed. 12. Ultrasound of the liver for tomorrow along with hepatitis panel due to increased liver function. 13. UA. 14. Chest x-ray. 15. Will follow closely. TIME SPENT: More than 70 minutes. MTDD
--- NOTE | 2021-05-07 14:41 | PN ---
DATE OF SERVICE: 05/06/2021 SUBJECTIVE: The patient was seen and examined in the hospital after she was hospitalized. First in the emergency room and then on the floor. She was hospitalized with atrial fibrillation with rapid ventricular response and hypertension. The patient has history of hypertension and atrial fibrillation for past 3 years and cardioverted in the past. She believe in taking medication. She was not on any medications. She was on Cardizem drip and PO Cardizem. She doesn't have any evidence of any myocardial event. There is no evidence of underling structural heart problems. Condition so far is stable. Her plan was done with the Nurse Practitioner with history and physical. TIME SPENT: More than 30 minutes. Plan and coordination of the patient's care discussed in the presence of nurse. SUHAS
[2021-05-08 04:35] LABS: BASOPHILS % (AUTO) 0.3 % (0.0-3.0); EOSINOPHILS # (AUTO) 0.1 K/ul (0.0-0.7); EOSINOPHILS % (AUTO) 1.4 % (0.0-7.0); HEMATOCRIT 33.5 % (37.0-47.0); HEMOGLOBIN 11.7 g/dl (12.0-16.0); LYMPHOCYTES # (AUTO) 1.3 K/uL (0.60-3.4); LYMPHOCYTES % (AUTO) 34.7 (10.0-50.0); MEAN CORPUSCULAR HEMOGLOBIN 30.9 pg (27.0-31.0); MEAN CORPUSCULAR HGB CONC 34.9 (31.8-35.4); MEAN CORPUSCULAR VOLUME 88.4 fl (81.0-99.0); MONOCYTES # (AUTO) 0.4 K/uL (0.4-2.0); MONOCYTES % (AUTO) 10.5 (0-10); NEUTROPHILS # (AUTO) 1.9 K/ul (2.0-6.9); NEUTROPHILS % (AUTO) 53.1 % (42.2-75.2); PLATELET COUNT 169 10^3/uL (140-440); RDW COEFFICIENT OF VARIATION 13.2 % (11.6-14.8); RED BLOOD COUNT 3.79 10^6/ul (4.20-5.40); WHITE BLOOD COUNT 3.63 K/ul (4.6-10.2)
[2021-05-08 04:49] LABS: ALANINE AMINOTRANSFERASE 52.1 U/L (0-35); ALBUMIN 3.84 g/dL (3.5-5.0); ALKALINE PHOSPHATASE 94.6 U/L (53-141); ASPARTATE AMINO TRANSFERASE 51.7 U/L (14-36); BILIRUBIN,TOTAL 0.38 mg/dL (0.2-1.3); BLOOD UREA NITROGEN 18.6 mg/dL (7-17); CALCIUM 9.06 mg/dL (8.4-10.2); CHLORIDE 98.9 mmol/L (98-107); CREATININE 0.72 mg/dL (0.60-1.30); GLUCOSE 96.2 mg/dL (74-106); POTASSIUM 4.39 mmol/L (3.5-5.1); SODIUM 131.9 mmol/L (134.5-145); TOTAL PROTEIN 5.95 g/dL (6.3-8.2)
[2021-05-08 06:12] LABS: CHOLESTEROL 158.2 mg/dL (0-200); TRIGLYCERIDES 61.6 mg/dL (0-150)
[2021-05-08] MEDS: CARDIZEM PO SCH (09:10)
[2021-05-08] MEDS: TAMBOCOR PO SCH (09:10)
[2021-05-08] MEDS: ELIQUIS PO SCH (09:10)
[2021-05-08 10:21] VITALS: BP 129/71; TEMP 97.6
[2021-05-08] MEDS ORDERED: CARDIZEM PO SCH (21:00)
--- NOTE | 2021-05-09 09:29 | CM.DICTOOL ---
ADMISSION: 05/06/21 13:01 DISCHARGE: MAY 08, 2021 DATE OF SERVICE: 05/08/21 FINAL DIAGNOSIS ATRIAL FIBRILLATION WITH RVR HYPERTENSION HYPONATREMIA HISTORY OF NONCOMPLIANCE WITH MEDICATIONS,LIFESTYLE, RECOMMENDATIONS AND FOLLOW- UP SHE STATED SHE LIKES TO TAKE NATURAL ALTERNATIVES. SHE HAS PREVIOUSLY SEEN DR. PANDYA HX: A-FIB HISTORY WITH CARDIOVERSION HYPERTHYROIDISM NON-COMPLIANCE WITH MEDICATIONS, LIFESTYLE, RECOMMENDATIONS, AND FOLLOW-UP PAST SURGICAL HISTORY: TONSILLECTOMY HYSTERECTOMY CODE STATUS: FULL CODE LAST VITALS Temp Pulse Resp BP Pulse Ox 97.6 F 112 H 18 129/71 97 05/08/21 10:00 05/08/21 10:00 05/08/21 10:00 05/08/21 10:00 05/08/21 10:00 TAKE THESE MEDICATIONS AT HOME Apixaban (Apixaban 5 Mg Tab) 2.5 mg PO BID [facility] Last Admin: 05/08/21 09:10 Dose: 2.5 mg Diltiazem HCl (Diltiazem Hcl 60 Mg Tablet) 60 mg PO BID [facility] Last Admin: 05/08/21 09:10 Dose: 60 mg Flecainide Acetate (Flecainide Acetate 100 Mg Tablet) 50 mg PO BID [facility] Last Admin: 05/08/21 09:10 Dose: 50 mg ALLERGIES antibiotics Adverse Reaction (Uncoded 05/06/21 08:49) pain meds Adverse Reaction (Uncoded 05/06/21 08:49) DISCONTINUED MEDICATIONS NONE NEW PRESCRIPTIONS: 1).ELIQUIS (Apixaban 5 Mg Tab) 2.5 mg PO BID [facility] 2).CARDIZEM (Diltiazem Hcl 60 Mg Tablet) 60 mg PO BID [facility] 3).TAMBOCOR (Flecainide Acetate 100 Mg Tablet) 50 mg PO BID [facility] SMOKING: N/A DISEASE SPECIFIC EDUCATION: RISK ASSOCIATED WITH ATRIAL FIBRILLATION SUCH BLOOD CLOT AND CVA DISCUSSED IN DETAIL A-FIB AND RVR HYPERTENSION COVID APPOINTMENTS ACTIVITY BLEEDING PRECAUTIONS LAB REVIEW: 05/08/21 04:30 05/08/21 04:30 05/08/21 04:30: WBC 3.63 L, RBC 3.79 L, Hgb 11.7 L, Hct 33.5 L, MCV 88.4, MCH 30.9, MCHC 34.9, RDW Coeff of Philippe 13.2, Plt Count 169, Immature Gran % (Auto) 0.0, Neut % (Auto) 53.1, Lymph % (Auto) 34.7, [place] % (Auto) 10.5 H, Eos % (Auto) 1.4, Baso % (Auto) 0.3, Neut # (Auto) 1.9 L, Lymph # (Auto) 1.3, [place] # (Auto) 0.4, Eos # (Auto) 0.1, Baso # (Auto) 0.0, Immature Gran # (Auto) 0.0 05/08/21 04:30: Sodium 131.9 L, Potassium 4.39, Chloride 98.9, Carbon Dioxide 26.0, Anion Gap 11.39, BUN 18.6 H, Creatinine 0.72, Estimated GFR (MDRD) 78.00, BUN/Creatinine Ratio 25.83, Glucose 96.2, Calcium 9.06, Total Bilirubin 0.38, AST 51.7 H, ALT 52.1 H, Alkaline Phosphatase 94.6, Total Protein 5.95 L, Albumin 3.84, Globulin 2.11, Albumin/Globulin Ratio 1.81, Triglycerides 61.6, Cholesterol 158.2, LDL Cholesterol, Calc 97, VLDL Cholesterol 12, HDL Cholesterol 49.0, Cholesterol/HDL Ratio 3.2 L 05/08/21 04:30: Hemoglobin A1c 5.68 PLAN: DISCHARGE HOME: TODAY MAY 08, 2021 INDEPENDENTLY AND LIVES WITH HER ACTIVITY: UP TOLERATED, CHANGE POSITIONS SLOWLY NO STRENUOUS ACTIVITIES, WALK WITH FREQUENT REST PERIODS BLEEDING PRECAUTIONS STAY IN DOORS, ESPECIALLY WHEN HOT AND HUMID PANDEMIC PRECAUTIONS DIET: HEART HEALTHY MD FOLLOW UP: SEE DR. LEAL/SEBASTIEN GATES APRN/ MAY CAMACHO APRN IN THE OFFICE IN 5-7 DAYS CALL [phone] AND MAKE APPOINTMENT, REMIND THEM IT IS A HOSPITAL FOLLOW-UP PRESENT TO LOCAL EMERGENCY ROOM IF UNABLE TO CONTACT DR. FREDERICK WITH ANY CONCERNS CODE STATUS: FULL CODE MRS THURSTON IS ALERT AND ORIENTED X 4. SHE IS PLEASANT AND TALKATIVE. NO SOA WITH ACTIVITY. SHE REPORTS THAT SOME TIMES SHE HAS CHEST PAIN WHEN SHE TAKES CERTAIN PRESCRIPTION MEDICATIONS, NO CHEST PAIN ON THIS DAY. SHE IS UP TOLERATED INDEPENDENTLY AND STEADY. SKIN WARM AND DRY AND INTACT. NUTRITIONAL AND FLUID INTAKE SUBSTANTIAL WITH 75- 100% OF MEALS CONSUMED. SHE IS CONTINENT OF BOWEL AND BLADDER WITH LAST BM 05/08/2021. SHE IS VERY VOCAL ABOUT NOT BEING OLD AT 80. SHE LIVES WITH HER . MD SEBASTIEN RIVERA APRN ALYCE HANNAN, APRN
--- NOTE | 2021-05-09 11:19 | DS ---
DATE OF SERVICE: 05/08/2021 FINAL DIAGNOSIS: ATRIAL FIBRILLATION WITH RVR HYPERTENSION HYPONATREMIA HISTORY OF NONCOMPLIANCE WITH MEDICATIONS,LIFESTYLE, RECOMMENDATIONS AND FOLLOW- UP SHE STATED SHE LIKES TO TAKE NATURAL ALTERNATIVES. SHE HAS PREVIOUSLY SEEN DR. PANDYA HISTORY: A-FIB HISTORY WITH CARDIOVERSION HYPERTHYROIDISM NON-COMPLIANCE WITH MEDICATIONS, LIFESTYLE, RECOMMENDATIONS, AND FOLLOW-UP PAST SURGICAL HISTORY: TONSILLECTOMY HYSTERECTOMY CODE STATUS: FULL CODE LAST VITALS: Temp Pulse Resp BP Pulse Ox 97.6 F 112 H 18 129/71 97 05/08/21 10:00 05/08/21 10:00 05/08/21 10:00 05/08/21 10:00 05/08/21 10:00 DISCHARGE INSTRUCTIONS: DISCHARGE HOME: TODAY MAY 08, 2021, INDEPENDENTLY AND LIVES WITH HER . MD FOLLOW UP: SEE DR. LEAL/SEBASTIEN GATES APRN/ MAY CAMACHO APRN IN THE OFFICE IN 5-7 DAYS. CALL [phone] AND MAKE APPOINTMENT, REMIND THEM IT IS A HOSPITAL FOLLOW-UP. PRESENT TO LOCAL EMERGENCY ROOM IF UNABLE TO CONTACT DR. FREDERICK WITH ANY CONCERNS. CODE STATUS: FULL CODE. TAKE THESE MEDICATIONS AT HOME: Apixaban (Apixaban 5 Mg Tab) 2.5 mg PO BID [facility] Last Admin: 05/08/21 09:10 Dose: 2.5 mg Diltiazem HCl (Diltiazem Hcl 60 Mg Tablet) 60 mg PO BID [facility] Last Admin: 05/08/21 09:10 Dose: 60 mg Flecainide Acetate (Flecainide Acetate 100 Mg Tablet) 50 mg PO BID [facility] Last Admin: 05/08/21 09:10 Dose: 50 mg ALLERGIES: antibiotics Adverse Reaction (Uncoded 05/06/21 08:49) pain medications Adverse Reaction (Uncoded 05/06/21 08:49) DISCONTINUED MEDICATIONS: NONE NEW PRESCRIPTIONS: 1). ELIQUIS (Apixaban 5 Mg Tab) 2.5 mg PO BID [facility] 2). CARDIZEM (Diltiazem Hcl 60 Mg Tablet) 60 mg PO BID [facility] 3). TAMBOCOR (Flecainide Acetate 100 Mg Tablet) 50 mg PO BID [facility] SMOKING: N/A DISEASE SPECIFIC EDUCATION: RISK ASSOCIATED WITH ATRIAL FIBRILLATION SUCH BLOOD CLOT AND CVA DISCUSSED IN DETAIL A-FIB AND RVR HYPERTENSION COVID APPOINTMENTS ACTIVITY BLEEDING PRECAUTIONS LAB REVIEW: 05/08/21 04:30 05/08/21 04:30 05/08/21 04:30: WBC 3.63 L, RBC 3.79 L, Hgb 11.7 L, Hct 33.5 L, MCV 88.4, MCH 30.9, MCHC 34.9, RDW Coeff of Philippe 13.2, Plt Count 169, Immature Gran % (Auto) 0.0, Neut % (Auto) 53.1, Lymph % (Auto) 34.7, [place] % (Auto) 10.5 H, Eos % (Auto) 1.4, Baso % (Auto) 0.3, Neut # (Auto) 1.9 L, Lymph # (Auto) 1.3, [place] # (Auto) 0.4, Eos # (Auto) 0.1, Baso # (Auto) 0.0, Immature Gran # (Auto) 0.0 05/08/21 04:30: Sodium 131.9 L, Potassium 4.39, Chloride 98.9, Carbon Dioxide 26.0, Anion Gap 11.39, BUN 18.6 H, Creatinine 0.72, Estimated GFR (MDRD) 78.00, BUN/Creatinine Ratio 25.83, Glucose 96.2, Calcium 9.06, Total Bilirubin 0.38, AST 51.7 H, ALT 52.1 H, Alkaline Phosphatase 94.6, Total Protein 5.95 L, Albumin 3.84, Globulin 2.11, Albumin/Globulin Ratio 1.81, Triglycerides 61.6, Cholesterol 158.2, LDL Cholesterol, Calc 97, VLDL Cholesterol 12, HDL Cholesterol 49.0, Cholesterol/HDL Ratio 3.2 L 05/08/21 04:30: Hemoglobin A1c 5.68 ACTIVITY: UP TOLERATED, CHANGE POSITIONS SLOWLY NO STRENUOUS ACTIVITIES, WALK WITH FREQUENT REST PERIODS BLEEDING PRECAUTIONS STAY IN DOORS, ESPECIALLY WHEN HOT AND HUMID PANDEMIC PRECAUTIONS DIET: HEART HEALTHY HOSPITAL COURSE: 80 year old female seen for the first time in the emergency room on the request of her who is my patient. She had atrial fibrillation with fast ventricular response and hypertension. The patient had some symptoms of palpitations otherwise she was not have any shortness of breath, PND or orthopnea. The patient's EKG showed atrial fibrillation with rapid ventricular response with some ST-T wave changes. The patient's cardiac markers were negative for any acute myocardial event. Chest x-ray was negative for any CHF. She did not have any symptoms of CHF. She was put on Cardizem drip 10mg per hour along with IV push. She has oral dose of Cardizem once the rate was controlled drip was discontinued eventually. The patient ended up on Cardizem 60mg twice a day at the time of discharge as the patient had couple of pauses with 2.4 seconds. The patient was practically asymptomatic with heart rate of 40 per minute. Blood pressure was more or less well controlled. The patient's thyroid functions are normal. She has history of hyperthyroidism in the past. She has history of atrial fibrillation with cardioversion 2-3 years ago. After that she was put on medications which she had discontinued. The patient doesn't believe in taking any medications. At the time in the emergency room when I saw her she on multiple over the counter medications including vitamin pills but no prescription medications. Educated about atrial fibrillation in detail and she was put on Eliquis 5mg twice a day along with Cardizem 60mg twice a day and Flecainide 50mg PO BID. She was explained about atrial fibrillation and it's complications. The patient is going to be followed as an outpatient. Her echo showed borderline LVH with borderline enlarged LA cavity with mitral valve prolapse. Motor functions were normal. COVID test was negative. Lipid profile is pending. In any case the patient's condition at the time of discharge is stable. The patient was strongly advised to take her medications regularly. She was also instructed that we may increase the dose of her medications depending upon her atrial fibrillation with the rate. She was also instructed that she may be referred to sales training manager if she persists with atrial fibrillation. is very understanding but the patient is very reluctant about taking any medications. She is already talking about having side effects from all the medications she is on and may have to go off. She is to be seen in the office in 5-7 days. Condition at the time of discharge is stable TIME SPENT: More than 60 minutes. YOUNGD
--- NOTE | 2021-05-09 11:45 | PN ---
05/06/2021: Level 5 05/07/2021: Intermediate 05/08/2021: D as in discharge MTDD
--- NOTE | 2021-05-10 14:02 | ECHO2D ---
Date of Exam: 05/07/2021 Ordering Physician: DR. GLENNY LEAL Room #: 111 Reason for Echo: A-FIB WITH RVR, CHEST PAIN M-Mode Normal Adult Results LV Dimensions Normal Adult Results AoV Opening excursions >1.6 >1.6 LVEDD-base- 3.5-5.8 4.4 Ao root dimensions 2.0-3.7 3.3 LVESD-base- 3.1-4.6 L. Atrium dimensions 1.9-3.8 4.2 Post. Wall thickness 0.8-1.1 1.1 IV septum (thickness) 0.7-1.2 1.2 Post. Wall excursion 0.72-1.3 NORMAL Septal motion 0.7 Systolic motion R. Ventricular cavity 1.5-2.0 NORMAL LVEF 60% 63% Paradoxical septal wall motion NORMAL 2-D : EVIDENCE OF MITRAL VALVE LEAFLETS WITH MITRAL VALVE PROLAPSE NOTED ON APICAL FOUR CHAMBER VIEW AND LEFT PARASTERNAL LONG AXIS-MILD LEFT ATRIAL CAVITY ENLARGEMENT, SMALL PERICARDIAL EFFUSION, NO THROMBUS, NORMAL LEFT VENTRICLE SIZE AND CONTRACTILITY M-MODE: MV: MITRAL VALVE PROLAPSE AV: NORMAL TV: NORMAL PV: CHAMBER SIZE: ENLARGED LEFT ATRIAL CAVITY WALL MOTION: NORMAL PERICARDIUM: SMALL TO TRACE EFFUSION INTERPRETATION: 1. BORDERLINE LEFT VENTRICULAR HYPERTROPHY WITH LEFT ATRIAL CAVITY (4.2 CM) 2. NORMAL LEFT VENTRICULAR CONTRACTILITY 3. MITRAL VALVE PROLAPSE NOTED WITH MILD MITRAL REGURGITATION 4. SMALL TO TRACE PERICARDIAL EFFUSION MTDD
--- NOTE | 2021-05-13 09:20 | PN ---
DATE OF SERVICE: 05/07/21 SUBJECTIVE: The patient was hospitalized with atrial fibrillation. The patient's rate today is 50 to 70/min. She has been maintained on the dose of her medications and holding it. She is on Cardizem and Flecainide. Blood pressure systolic is 110- 120. Echocardiogram revealed normal LV contractility and borderline LA cavity enlargement. Mitral valve prolapse noted with redundant leaflets, mild mitral regurgitation and tricuspid regurgitation noted. Again, the patient has been advised to take the medication as prescribed in the hospital, educated about atrial fibrillation and complications. She is already on Eliquis. The patient was seen and examined with the nurse practitioner. TIME SPENT: More than 30 minutes. Plan and coordination of the patient's care discussed in the presence of nurse. SUHAS
--- NOTE | 2021-05-13 10:16 | PN ---
DATE OF SERVICE: 05/08/21 SUBJECTIVE: 80-year-old white female hospitalized with atrial fibrillation, rapid ventricular response, hypertension. He is still in atrial fibrillation, heart rate is anywhere from 60 to 110/min. She is on Cardizem 60 mg t.i.d. and Tambocor/Flecainide 50 mg b.i.d. Blood pressure is well-controlled. REVIEW OF SYSTEMS: CONSTITUTIONAL: No night sweats. No fatigue, malaise, lethargy. No fever or chills. HEENT: Eyes: No visual changes. No eye pain. No eye discharge. ENT: No runny nose. No epistaxis. No sinus pain. No sore throat. No odynophagia. No congestion. RESPIRATORY: No cough, no congestion. No hemoptysis. No shortness of breath. CARDIOVASCULAR: No angina symptoms. No CHF symptoms. No atypical chest pain for CAD. No palpitations. No PND. No orthopnea. GASTROINTESTINAL: No abdominal pain. No nausea or vomiting. No diarrhea or constipation. No hematemesis. No hematochezia. GENITOURINARY: No urgency. No frequency. No dysuria. No hematuria. No obstructive symptoms. No discharge. No pain. No significant abnormal bleeding. MUSCULOSKELETAL: No musculoskeletal pain; no joint swelling. NEUROLOGICAL: No headache. No neck pain. No syncope. No seizures. No dizziness. PSYCHIATRIC: Not anxious. No depression. No suicidal thoughts. No homicidal thoughts. SKIN: No rash. No lesions. No wounds. ENDOCRINE: No unexplained weight loss. No weight gain. HEMATOLOGIC/LYMPHATIC: No anemia. No purpura. No petechiae. No prolonged or excessive bleeding. No palpable lymph nodes. PHYSICAL EXAMINATION: GENERAL: The patient is up and about doing well, wants to go home. VITAL SIGNS: Temperature 98, pulse 80, respiratory rate 16, blood pressure 150/98, pulse ox 96%. HEENT: Head normocephalic, atraumatic. Eyes: Extraocular muscles are intact. Pupils are equal, round and reactive to light and accommodation. Ears: No lesions. Nose appeared normal. Throat: No exudate or erythema. NECK: Supple. No JVD, no carotid bruit. No lymphadenopathy or thyromegaly. LUNGS: Clear to auscultation. Percussion note normal. Chest symmetrical. HEART: S1, S2, no S3. No murmurs. No cyanosis or clubbing. No ascites. Pulses: Dorsalis pedis and posterior tibial pulses +1 to +2 bilaterally. ABDOMEN: Soft. Nontender. Bowel sounds active. No CVA tenderness. No mass felt. EXTREMITIES: No edema. Full range of motion of all extremities, equal. NEUROLOGIC: No focal deficit. Cranial nerves II through XII are grossly intact. No headache. No double vision. SKIN: Not dry. Intact. Turgor - normal. LYMPHATIC: No palpable lymph nodes/no lymphedema. MUSCULOSKELETAL: Normal joints with no swelling. Muscle tone is normal. LABS: Hemoglobin 11.7, hematocrit 33, WBC 3,600, normal differential. Creatinine 0.7, BUN 18, potassium 4.3, T4, TSH normal with TSH of 3.4, free T4 is 1.5; normal is 0.7 to 2.1. ASSESSMENT: 1. Atrial fibrillation seems to be fairly well-controlled. 2. Hypertension labile but well-controlled. 3. Chronic anemia. PLAN: 1. Discharge the patient home. 2. Will cut down Cardizem to 60 twice a day. 3. The patient was noted to have a couple of pauses after her first dose of Cardizem this morning. It happened three hours later on where she had a pause of 2.4 seconds to 40 per minute. 4. Low salt diet discussed. 5. DASH diet discussed. The patient is noncompliant of medications, followup. She is very vocal about her dislike for all the medications and how she reacts to all the medications. TIME SPENT: More than 30 minutes. Plan and coordination of the patient's care discussed in the presence of nurse. SUHAS
== END 2021-05-08 14:20 | disposition home or self-care (01) | DRG 309 ==
LOC: ED 08:33 → MEDSURG A 13:01
PROVIDERS: ADMIT Internal Medicine; ATTEND Internal Medicine
DX: D64.9 Anemia, unspecified; I49.9 Cardiac arrhythmia, unspecified; Z91.14 Patient's other noncompliance with medication regimen; R42 Dizziness and giddiness; E87.1 Hypo-osmolality and hyponatremia; I10 Essential (primary) hypertension; R00.2 Palpitations; Z20.822 Contact with and (suspected) exposure to COVID-19; R06.02 Shortness of breath

== ENCOUNTER 2021-06-24 08:46 | Inpatient (IN) ==
[2021-06-24] MEDS ORDERED: SODIUM CHLORIDE 1,000 ML IV STA (09:05)
--- NOTE | 2021-06-24 09:21 | ED.PDOC ---
General ED Provider: Dr. DANIELLE MOJICA Chief Complaint: Cough Stated Complaint: Patient presents with fatigue and cough. Symptoms have been going on for about 1 week. She seems to attribute it to starting a b-nighat for her chronic afib. She denies any worsening palpitations, chest pain, naus ea, vomiting or shortness of breath. She denies any fevers or chills. She has generalized weakness and fatigue without any focal weakness or numbness. Nothing else has made the symptoms better or worse and they are mild but persistent in nature. Time Seen by Provider: 06/24/21 08:47 Mode of Arrival: Walk-In Information Source: Patient Primary Care Provider: HERB PANDYA Nursing and Triage Documentation Reviewed and Agree: Yes Does patient meet sepsis criteria?: No System Inflammatory Response Syndrome: Not Applicable Sepsis Protocol: For patient's 13 years and over: Temp is 96.8 and below OR 101 and greater Pulse >90 BPM Resp >20/minute Acutely Altered Mental Status Are patient's symptoms suggestive of a new infection, such as: -Pneumonia -Skin, Soft Tissue -Endocarditis -UTI -Bone, Joint Infection -Implantable Device -Acute Abdominal Infection -Wound Infection -Meningitis -Blood Stream Catheter Infection -Unknown Review of Systems Review Of Systems Constitutional: Reports Malaise Eyes: Reports No symptoms Ears, Nose, Mouth, Throat: Reports No symptoms Respiratory: Reports Cough Cardiac: Reports No symptoms GI: Reports No symptoms : Reports No symptoms Musculoskeletal: Reports No symptoms Skin: Reports No symptoms Neurological: Reports Numbness and Weakness (Generalized weakness without focal weakness.) Endocrine: Reports No symptoms Hematologic/Lymphatic: Reports No symptoms All Other Systems: Reviewed and Negative FOR[facility]LY [facility] Medical History Atrial fibrillation Cancer Family History Mother Cancer of gastrointestinal tract BROTHER Peripheral arterial disease Social History Smoking and tobacco status: Never smoker Passive smoking exposure: No Second hand smoke exposure: No Smoking risk assessment performed: No Surgical History History of tonsillectomy Female Reproductive History Menstrual Hx Hysterectomy: Yes Hx Tubal Ligation: No Physical Exam Physical Exam Appearance: Reports Well-appearing, No pain distress and Thin Ill-appearing: None Pain Distress: None Eyes: Reports [place], EOMI and Conjunctiva clear ENT: Reports Not Examined Neck: Supple Respiratory: Reports Airway patent, Breath sounds clear, Breath sounds equal and Respirations nonlabored Cardiovascular: Reports Pulses normal, No rub, No murmur and Irregular rhythm GI/: Reports Soft, Nontender and Bowel sounds normal Musculoskeletal: Reports Normal strength, ROM intact, No edema and No calf tenderness Skin: Reports Warm, Dry and Normal color Neurological: Reports Sensation intact, Motor intact, Reflexes intact, Cranial nerves intact, Alert, Oriented and Other (Mild generalized weakness without focal weakness) Psychiatric: Reports Affect appropriate and Mood appropriate Interpretation EKG Interpretation Time of EKG #1: 09:41 Rate: Normal Rhythm: Other (Atrial Fibrillation) Ectopy: None [place]: NL ST Segment: Normal Critical Care Note Critical Care Note Total Critical Care Time (mins): 0 Course Course Hematology/Chemistry: 06/24/21 09:26 06/24/21 09:26 Orders, Labs, Meds: Lab Review 06/24/21 06/24/21 06/24/21 09:26 09:26 09:26 WBC 6.14 RBC 4.39 Hgb 13.4 Hct 38.0 MCV 86.6 MCH 30.5 MCHC 35.3 RDW Coeff of Philippe 11.9 Plt Count 215 Immature Gran % (Auto) 0.3 Neut % (Auto) 73.3 Lymph % (Auto) 13.7 [place] % (Auto) 12.2 H Eos % (Auto) 0.2 Baso % (Auto) 0.3 Neut # (Auto) 4.5 Lymph # (Auto) 0.8 [place] # (Auto) 0.8 Eos # (Auto) 0.0 Baso # (Auto) 0.0 Immature Gran # (Auto) 0.0 Sodium 120.9 L Potassium 3.33 L Chloride 86.5 L Carbon Dioxide 23.6 Anion Gap 14.13 BUN 16.9 Creatinine 0.83 Estimated GFR (MDRD) 66.00 BUN/Creatinine Ratio 20.36 Glucose 114.7 H Calcium 8.76 Total Bilirubin 0.56 AST 26.7 ALT 19.0 Alkaline Phosphatase 99.3 Total Creatine Kinase 42.6 Troponin I < 0.012 Total Protein 6.52 Albumin 4.12 Globulin 2.40 Albumin/Globulin Ratio 1.71 SARS-CoV-2 Ag (Rapid) Negative Orders Category Date Time Status PLACE PATIENT OBSERVATION .TO [facility] (MONITORED BED ADMISSION 06/24/21 10:04 Active ) EKG-(ED ONLY) Stat CARDIO 06/24/21 09:05 Completed TELEMETRY MONITORING TELE CARE 06/24/21 10:05 Active CBC W/ AUTO DIFF Stat LAB 06/24/21 09:26 Completed COMPREHENSIVE METABOLIC PANEL Stat LAB 06/24/21 09:26 Completed COVID-19 ANTIGEN TEST Stat LAB 06/24/21 09:26 Completed CREATINE KINASE Stat LAB 06/24/21 09:26 Completed RESPIRATORY PANEL 2.1 (PCR) Stat LAB 06/24/21 10:15 Received TROPONIN I Stat LAB 06/24/21 09:26 Completed Sodium Chloride 0.9% [Sodium Chloride] 1,000 ml MEDS 06/24/21 09:05 Discontinued IV BOLUS CHEST, 2 VIEWS PA & LAT Stat RADS 06/24/21 09:05 Completed Medications Discontinued Medications Generic Name Dose Route Start Last Admin Trade Name Freq PRN Reason Stop Dose Admin Sodium Chloride 1,000 mls @ 1,000 mls/hr 06/24/21 09:05 Sodium Chloride IV 06/24/21 10:04 BOLUS STA Vital Signs: Temp Pulse Resp BP Pulse Ox 06/24/21 08:46 97.1 F L 79 16 137/79 98 Discharge Plan Discharge Patient Disposition: ADMITTED INPATIENT Discharge Problem: Acute hyponatremia ED Provider: DANIELLE MOJICA Condition: Stable Physician Progress Note: []I have reviewed patient's initial results. CBC is unremarkable. Chems are notable for a Na of 120.0 with a K of 3.3. Trop was negative. Rapid covid was negative. XR is unremarkable with possible COPD. I spoke with Dr. Gardner to discuss the hyponatremia. After discussion, it may be that she drinks too much water but he would like her admitted to observation to correct and monitor the Na. Patient will be admitted in stable condition.
[2021-06-24 09:30] LABS: BASOPHILS % (AUTO) 0.3 % (0.0-3.0); EOSINOPHILS % (AUTO) 0.2 % (0.0-7.0); HEMOGLOBIN 13.4 g/dl (12.0-16.0); IMMATURE GRANULOCYTE % (AUTO) 0.3 % (0.0-5.0); LYMPHOCYTES # (AUTO) 0.8 K/uL (0.60-3.4); LYMPHOCYTES % (AUTO) 13.7 (10.0-50.0); MEAN CORPUSCULAR HEMOGLOBIN 30.5 pg (27.0-31.0); MEAN CORPUSCULAR HGB CONC 35.3 (31.8-35.4); MEAN CORPUSCULAR VOLUME 86.6 fl (81.0-99.0); MONOCYTES # (AUTO) 0.8 K/uL (0.4-2.0); MONOCYTES % (AUTO) 12.2 (0-10); NEUTROPHILS # (AUTO) 4.5 K/ul (2.0-6.9); NEUTROPHILS % (AUTO) 73.3 % (42.2-75.2); PLATELET COUNT 215 10^3/uL (140-440); RDW COEFFICIENT OF VARIATION 11.9 % (11.6-14.8); RED BLOOD COUNT 4.39 10^6/ul (4.20-5.40); WHITE BLOOD COUNT 6.14 K/ul (4.6-10.2)
[2021-06-24 09:43] LABS: ALBUMIN 4.12 g/dL (3.5-5.0); ALKALINE PHOSPHATASE 99.3 U/L (53-141); ASPARTATE AMINO TRANSFERASE 26.7 U/L (14-36); BILIRUBIN,TOTAL 0.56 mg/dL (0.2-1.3); BLOOD UREA NITROGEN 16.9 mg/dL (7-17); CALCIUM 8.76 mg/dL (8.4-10.2); CARBON DIOXIDE 23.6 mmol/L (22-30.0); CHLORIDE 86.5 mmol/L (98-107); CREATINE KINASE 42.6 U/L (30-135); CREATININE 0.83 mg/dL (0.60-1.30); GLUCOSE 114.7 mg/dL (74-106); POTASSIUM 3.33 mmol/L (3.5-5.1); SODIUM 120.9 mmol/L (134.5-145); TOTAL PROTEIN 6.52 g/dL (6.3-8.2)
[2021-06-24 09:54] LABS: TROPONIN I < 0.012 ng/ml (0.0000-0.120)
[2021-06-24 10:20] LABS: BORDETELLA PARAPERTUSSIS (PCR) NOT DETECTED (NOT DETECT); BORDETELLA PERTUSSIS (PCR) NOT DETECTED (NOT DETECT); CHLAMYDIA PNEUMONIAE (PCR) NOT DETECTED (NOT DETECT); CORONAVIRUS 229E (PCR) NOT DETECTED (NOT DETECT); CORONAVIRUS HKU1 (PCR) NOT DETECTED (NOT DETECT); CORONAVIRUS NL63 (PCR) NOT DETECTED (NOT DETECT); CORONAVIRUS OC43 (PCR) NOT DETECTED (NOT DETECT); HUMAN METAPNEUMOVIRUS (PCR) NOT DETECTED (NOT DETECT); HUMAN RHINOVIRUS/ENTEROV (PCR) NOT DETECTED (NOT DETECT); INFLUENZA B (PCR) NOT DETECTED (NOT DETECT); MYCOPLASMA PNEUMONIAE (PCR) NOT DETECTED (NOT DETECT); PARAINFLUENZA VIRUS 1 (PCR) NOT DETECTED (NOT DETECT); PARAINFLUENZA VIRUS 2 (PCR) NOT DETECTED (NOT DETECT); PARAINFLUENZA VIRUS 3 (PCR) NOT DETECTED (NOT DETECT); PARAINFLUENZA VIRUS 4 (PCR) NOT DETECTED (NOT DETECT); RESPIRATORY SYNCYTIAL V (PCR) NOT DETECTED (NOT DETECT); SARS_COV_2 (PCR) NOT DETECTED (NOT DETECT)
--- NOTE | 2021-06-24 10:22 | DI ---
EXAM: Chest two views HISTORY: Cough COMPARISON: 05/06/2021 TECHNIQUE: Two views of the chest were performed FINDINGS: Mild biapical scarring suggested. Lungs are hyperinflated. No definite airspace consolid ation. There is no pleural effusion or pneumothorax. The heart is normal in size. The mediastinal contour is normal, noting atherosclerosis. There are no acute abnormalities of the bones. IMPRESSION: 1. No definite acute cardiopulmonary process. 2. Hyperinflated lungs may suggest chronic obstructive pulmonary disease.
[2021-06-24] MEDS ORDERED: K-DUR PO STA (11:03)
[2021-06-24 11:08] LABS: ADENOVIRUS (PCR) NOT DETECTED (NOT DETECT)
[2021-06-24 12:29] VITALS: BMI 16.1
[2021-06-24] MEDS: SODIUM CHLORIDE 1,000 ML IV SCH (12:38)
[2021-06-24 16:35] LABS: BILIRUBIN,URINE Negative (NEGATIVE); CLARITY,URINE Clear (CLEAR); COLOR,URINE Yellow (YELLOW); GLUCOSE, URINE (UA) Negative (NEGATIVE); KETONES,URINE Trace (NEGATIVE); LEUKOCYTE ESTERASE ,URINE 1+ (NEGATIVE); NITRITE,URINE Negative (NEGATIVE); PROTEIN,URINE Negative (NEGATIVE); URINE, BLOOD Trace-intact (NEGATIVE); UROBILINOGEN,URINE 0.2 (0.2)
[2021-06-24 16:39] LABS: URINE RBC, MICROSCOPIC 0-2 (0-2)
[2021-06-24 16:40] LABS: BACTERIA,URINE TRACE (NOT PRESENT); RENAL EPITHELIAL CELLS,URINE 0-2 (NOT PRESENT); SQUAMOUS EPITHELIAL CELL,UR 0-2 (0-5)
[2021-06-24] MEDS: ZEBETA PO SCH (20:30)
[2021-06-24] MEDS: CARDIZEM PO SCH (20:30)
[2021-06-24] MEDS: ELIQUIS PO SCH (20:33)
[2021-06-25] MEDS: SODIUM CHLORIDE 1,000 ML IV SCH ×2 (02:02→15:13)
[2021-06-25 04:48] LABS: BASOPHILS % (AUTO) 0.4 % (0.0-3.0); EOSINOPHILS # (AUTO) 0.1 K/ul (0.0-0.7); EOSINOPHILS % (AUTO) 2.3 % (0.0-7.0); HEMATOCRIT 33.1 % (37.0-47.0); HEMOGLOBIN 11.4 g/dl (12.0-16.0); IMMATURE GRANULOCYTE % (AUTO) 0.4 % (0.0-5.0); LYMPHOCYTES # (AUTO) 1.2 K/uL (0.60-3.4); LYMPHOCYTES % (AUTO) 22.8 (10.0-50.0); MEAN CORPUSCULAR HEMOGLOBIN 30.3 pg (27.0-31.0); MEAN CORPUSCULAR HGB CONC 34.4 (31.8-35.4); MONOCYTES # (AUTO) 0.6 K/uL (0.4-2.0); MONOCYTES % (AUTO) 10.7 (0-10); NEUTROPHILS # (AUTO) 3.3 K/ul (2.0-6.9); NEUTROPHILS % (AUTO) 63.4 % (42.2-75.2); PLATELET COUNT 167 10^3/uL (140-440); RDW COEFFICIENT OF VARIATION 12.4 % (11.6-14.8); RED BLOOD COUNT 3.76 10^6/ul (4.20-5.40); WHITE BLOOD COUNT 5.21 K/ul (4.6-10.2)
[2021-06-25 05:03] LABS: ALANINE AMINOTRANSFERASE 20.2 U/L (0-35); ALBUMIN 3.25 g/dL (3.5-5.0); ASPARTATE AMINO TRANSFERASE 30.4 U/L (14-36); BILIRUBIN,TOTAL 0.32 mg/dL (0.2-1.3); BLOOD UREA NITROGEN 12.8 mg/dL (7-17); CALCIUM 8.2 mg/dL (8.4-10.2); CARBON DIOXIDE 21.9 mmol/L (22-30.0); CHLORIDE 99.6 mmol/L (98-107); CREATININE 0.6 mg/dL (0.60-1.30); GLUCOSE 100.7 mg/dL (74-106); POTASSIUM 3.36 mmol/L (3.5-5.1); SODIUM 127.4 mmol/L (134.5-145); TOTAL PROTEIN 5.38 g/dL (6.3-8.2)
--- NOTE | 2021-06-25 08:17 | HP ---
DATE OF SERVICE: 06/24/21 HISTORY OF PRESENT ILLNESS: This is an 80-year-old white female who presented to the emergency room with weakness, palpitations. She has a long history of atrial fibrillation with RVR as well as noncompliance with medication. PAST MEDICAL HISTORY: Atrial fibrillation Hyperthyroidism History of noncompliance with medications, lifestyle and followup PAST SURGICAL HISTORY: Tonsillectomy Hysterectomy REVIEW OF SYSTEMS: CONSTITUTIONAL: No night sweats. No fatigue, malaise, lethargy. No fever or chills. HEENT: Eyes: No visual changes. No eye pain. No eye discharge. ENT: No runny nose. No epistaxis. No sinus pain. No sore throat. No odynophagia. No ear pain. No congestion. RESPIRATORY: No cough, no congestion. No hemoptysis. No shortness of breath. CARDIOVASCULAR: No angina symptoms. No CHF symptoms. No atypical chest pain for CAD. Palpitations. No PND. No orthopnea. GASTROINTESTINAL: No abdominal pain. No nausea or vomiting. No diarrhea or constipation. No hematemesis. No hematochezia. GENITOURINARY: No urgency. No frequency. No dysuria. No hematuria. No obstructive symptoms. No discharge. No pain. No significant abnormal bleeding. MUSCULOSKELETAL: No musculoskeletal pain. No joint swelling. No arthritis. NEUROLOGICAL: No headache. No neck pain. No syncope. No seizures. No dizziness. PSYCHIATRIC: Not anxious. No depression. No suicidal thoughts. No homicidal thoughts. SKIN: No rash. No lesions. No wounds. ENDOCRINE: No unexplained weight loss. No weight gain. HEMATOLOGIC/LYMPHATIC: No anemia. No purpura. No petechiae. No prolonged or excessive bleeding. No palpable lymph nodes. PERSONAL/FAMILY/SOCIAL HISTORY: She is , lives at home with her . No alcohol or ilicit drug use. Nonsmoker. Family history of coronary artery disease. MEDICATIONS: Diltiazem 60 mg p.o. b.i.d. Apixaban 2.5 mg p.o. b.i.d. Bisoprolol 2.5 mg p.o. b.i.d. ALLERGIES: HYDROCODONE PHYSICAL EXAMINATION: GENERAL: Positive for weakness. HEENT: Head normocephalic, atraumatic. Eyes: Extraocular muscles are intact. Pupils are equal, round and reactive to light and accommodation. Ears: No lesions. Nose appeared normal. Throat: No exudate or erythema. NECK: Supple. No JVD, no carotid bruit. No lymphadenopathy or thyromegaly. LUNGS: Clear to auscultation. Percussion note normal. Chest symmetrical. HEART: S1, S2, no S3. No murmur. No cyanosis or clubbing. No ascites. Pulses: Dorsalis pedis and posterior tibial pulses +1 to +2 bilaterally. ABDOMEN: Soft. Nontender. Bowel sounds active. No CVA tenderness. No mass felt. EXTREMITIES: No edema. Full range of motion of all extremities, equal. NEUROLOGIC: No focal deficit. Cranial nerves II through XII are grossly intact. No headache, no double vision or headache. SKIN: Not dry. Intact. Turgor - normal. LYMPHATIC: No palpable lymph nodes/no lymphedema. MUSCULOSKELETAL: Normal joints with no swelling. Muscle tone is normal. LABS: WBC 6.14, RBC 4.39, Hgb 13.4, HCT 38.0, MCV 86.6, MCH 30.5, MCHC 35.3, RDW 11.9, platelet 215. Sodium 120.9, potassium 3.33, chloride 86.5, carbon dioxide 23.6, anion gap 14.13, BUN 16.9, creatinine 0.83, GFR 66.00, BUN/creatinine ratio 20.36, glucose 114.7, calcium 8.76, bilirubin 0.56, AST 26.7, ALT 19.0, alkaline phosphatase 99.3, 42.6, troponin less 0.012, total protein 6.52, albumin 4.12, globulin 2.40, albumin/globulin ratio 1.71, SARS-CoV-2 Ag (Rapid) Negative. Chest x-ray - no definite acute cardiopulmonary process. Hyperinflated lungs may suggest chronic obstructive pulmonary disease. ASSESSMENT: 1. HYPONATREMIA - SODIUM 120 2. ATRIAL FIBRILLATION, NONCOMPLIANCE WITH MEDICATIONS PLAN: 1. We will admit. 2. Routine telemetry orders. 3. CBC, CMP daily. 4. Continue home medications. 5. Normal Saline IV at 100 cc/hr. 6. Regular diet. 7. Will follow closely. TIME SPENT: More than 70 minutes. [facility]
[2021-06-25] MEDS: ZEBETA PO SCH ×2 (08:49→20:09)
--- NOTE | 2021-06-25 08:49 | PCM.PROG ---
Attending Provider: ATTENDING PROVIDER: Dr. GLENNY LEAL This patient is seen with Carmelita Harry, Nurse Practitioner. DATE OF SERVICE: 06/25/21 SUBJECTIVE: This 80 year old /WHITE F was hospitalized 06/24/21. The patient is feeling better and says weakness has improved. Sodium has improved. Potassium is down. REVIEW OF SYSTEMS: CONSTITUTIONAL: No night sweats. No fatigue, malaise, lethargy. No fever or chills. Weakness. HEENT: Eyes: No visual changes. No eye pain. No eye discharge. ENT: No runny nose. No epistaxis. No sinus pain. No odynophagia. No congestion. RESPIRATORY: No cough, no congestion. No hemoptysis. No shortness of breath. CARDIOVASCULAR: No angina symptoms. No CHF symptoms. No atypical chest pain for CAD. No palpitations. No orthopnea.. GASTROINTESTINAL: No abdominal pain. No nausea or vomiting. No diarrhea or constipation. No hematemesis. No hematochezia. GENITOURINARY: No urgency. No frequency. No dysuria. No hematuria. No obstructive symptoms. No discharge. No pain. No significant abnormal bleeding. MUSCULOSKELETAL: No musculoskeletal pain; no joint swelling. NEUROLOGICAL: Awake, alert, oriented to time, place and person. No headache. No neck pain. No syncope. No seizures. No dizziness. PSYCHIATRIC: Not anxious. No depression. No suicidal thoughts. No homicidal thoughts. SKIN: No rash. No lesions. No wounds. ENDOCRINE: No unexplained weight loss. No weight gain. HEMATOLOGIC/LYMPHATIC: No anemia. No purpura. No petechiae. No prolonged or excessive bleeding. No palpable lymph nodes. PHYSICAL EXAMINATION: GENERAL: The patient is awake, alert and oriented, lying in bed in no distress. VITAL SIGNS: Temperature 98.3 F, Pulse 85, Respiratory Rate 18, BP 157/81, Pulse Ox 97% HEENT: Head normocephalic, atraumatic. Eyes: Extraocular muscles are intact. Pupils are equal, round and reactive to light and accommodation. Ears: No lesions. Nose appeared normal. Throat: No exudate or erythema. NECK: Supple. No JVD, no carotid bruit. No lymphadenopathy or thyromegaly. LUNGS: Clear to auscultation. Percussion note normal. Chest symmetrical. HEART: Irregular heart rate. S1, S2, no S3. No murmurs. No cyanosis or clubbing. No ascites. Pulses: Dorsalis pedis and posterior tibial pulses +1 to +2 both sides. ABDOMEN: Soft. Non-tender. Bowel sounds active. No CVA tenderness. No mass f elt. EXTREMITIES: No edema. Full range of motion of all extremities, equal. NEUROLOGIC: No focal deficit. Cranial nerves II through XII are grossly intact. No headache. No double vision. SKIN: Not dry. Intact. Turgor-normal. LYMPHATIC: No palpable lymph nodes/no lymphedema. MUSCULOSKELETAL: Normal joints with no swelling. Muscle tone is normal. LAB REVIEW: 06/25/21 04:44 06/25/21 04:44 06/25/21 04:44: Sodium 127.4 L, Potassium 3.36 L, Chloride 99.6, Carbon Dioxide 21.9 L, Anion Gap 9.26, BUN 12.8, Creatinine 0.60, Estimated GFR (MDRD) 96.00, BUN/Creatinine Ratio 21.33, Glucose 100.7, Calcium 8.20 L, Total Bilirubin 0.32, AST 30.4, ALT 20.2, Alkaline Phosphatase 91.0, Total Protein 5.38 L, Albumin 3.25 L, Globulin 2.13, Albumin/Globulin Ratio 1.52 06/25/21 04:44: WBC 5.21, RBC 3.76 L, Hgb 11.4 L, Hct 33.1 L, MCV 88.0, MCH 30.3, MCHC 34.4, RDW Coeff of Philippe 12.4, Plt Count 167, Immature Gran % (Auto) 0.4, Neut % (Auto) 63.4, Lymph % (Auto) 22.8, [place] % (Auto) 10.7 H, Eos % (Auto) 2.3, Baso % (Auto) 0.4, Neut # (Auto) 3.3, Lymph # (Auto) 1.2, [place] # (Auto) 0.6, Eos # (Auto) 0.1, Baso # (Auto) 0.0, Immature Gran # (Auto) 0.0 06/24/21 16:27: Urine Color Yellow, Urine Clarity Clear, Urine pH 7.0, Ur Specific [place] 1.015, Urine Protein Negative, Urine Glucose (UA) Negative, Ur ine Ketones Trace H, Urine Blood Trace-intact H, Urine Nitrite Negative, Urine Bilirubin Negative, Urine Urobilinogen 0.2, Ur Leukocyte Esterase 1+ H, Urine Microscopic RBC 0-2, Urine Microscopic WBC 5-10, Ur Squamous Epith Cells 0-2, Ur Renal Epithelial Cell 0-2, Urine Bacteria Trace 06/24/21 10:15: Adenovirus (PCR) Not detected, B. pertussis DNA (PCR) Not detected, B.parapertussis DNA PCR Not detected, C. pneumoniae DNA (PCR) Not detected, Coronavirus OC43 (PCR) Not detected, Coronavirus HKU1 (PCR) Not det ected, Coronavirus 229E (PCR) Not detected, Coronavirus NL63 (PCR) Not detected, Human Metapneumovir PCR Not detected, Influenza Type A (PCR) Not detected, Influenza B (RT-PCR) Not detected, M. pneumoniae (PCR) Not detected, Parainfluenza 1 (PCR) Not detected, Parainfluenza 2 (PCR) Not detected, Par ainfluenza 3 (PCR) Not detected, Parainfluenza 4 (PCR) Not detected, RSV (PCR) Not detected, Entero/Rhino (PCR) Not detected, SARS-CoV-2 (PCR) Not detected 06/24/21 09:26: SARS-CoV-2 Ag (Rapid) Negative 06/24/21 09:26: WBC 6.14, RBC 4.39, Hgb 13.4, Hct 38.0, MCV 86.6, MCH 30.5, MCHC 35.3, RDW Coeff of Philippe 11.9, Plt Count 215, Immature Gran % (Auto) 0.3, Neut % (Auto) 73.3, Lymph % (Auto) 13.7, [place] % (Auto) 12.2 H, Eos % (Auto) 0.2, Baso % (Auto) 0.3, Neut # (Auto) 4.5, Lymph # (Auto) 0.8, [place] # (Auto) 0.8, Eos # (Auto) 0.0, Baso # (Auto) 0.0, Immature Gran # (Auto) 0.0 06/24/21 09:26: Sodium 120.9 L, Potassium 3.33 L, Chloride 86.5 L, Carbon Dioxide 23.6, Anion Gap 14.13, BUN 16.9, Creatinine 0.83, Estimated GFR (MDRD) 66.00, BUN/Creatinine Ratio 20.36, Glucose 114.7 H, Calcium 8.76, Total Bilirubin 0.56, AST 26.7, ALT 19.0, Alkaline Phosphatase 99.3, Total Creatine Kinase 42.6, Troponin I < 0.012, Total Protein 6.52, Albumin 4.12, Globulin 2.40, Albumin/Globulin Ratio 1.71 ASSESSMENT: Please see below. 1. Hyponatremia 2. Hypokalemia 3. Generalized weakness 4. Atrial fibrillation 5. Noncompliance with medication, recommendations and followups. PLAN: 1. Continue IV fluids 2. Potassium 20meq BID Plan and coordination of the patient's care discussed in the presence of [employer] Operator and nurse. SCRIBED BY: Rianna SWAIN scribed while in presence of service performed by Dr. Leal/Carmelita Harry APRN on 06/25/21 ([id number])
[2021-06-25] MEDS: CARDIZEM PO SCH ×2 (08:50→20:09)
[2021-06-25] MEDS: ELIQUIS PO SCH ×2 (08:50→20:09)
[2021-06-25] MEDS: K-DUR PO SCH ×2 (08:50→17:58)
--- NOTE | 2021-06-25 10:40 | PN ---
DATE OF SERVICE: 06/24/2021 SUBJECTIVE: 80 year old white female hospitalized through the emergency room with having dizziness and as the patient had sodium of 120 likely from compulsive water drinking. The patient's rate is approximately 60-80 per minute, atrial fibrillation. The patient is very hard to treat because of her constant complaints about the medication she takes and the reaction to it. In fact 2-3 years ago when she had atrial fibrillation she was converted it and after that she was put on several medication including Eliquis and she stopped taking all of them and had to coerce her. She is practically not any on medication. She stayed in atrial fibrillation she has refused to go to see marzipan molder or consider cardioversion. In any case the patient's cardiovascular status is stable with no evidence of CHF or coronary insufficiency. Main problem is hyponatremia which is from compulsive water drinking. He was explained about this finding and advised to cut down on water or fluid intake just as much as she needs and nothing extra. She is continued on Zebeta and Cardizem for her atrial fibrillation. Her blood pressure is well controlled. CONDITION: Stable. The patient was seen and examined in the emergency room. TIME SPENT: More than 30 minutes. Plan and coordination of the patient's care discussed in the presence of nurse. SUHAS
[2021-06-26] MEDS: SODIUM CHLORIDE 1,000 ML IV SCH (04:24)
[2021-06-26 05:02] LABS: BASOPHILS % (AUTO) 0.6 % (0.0-3.0); EOSINOPHILS % (AUTO) 0.4 % (0.0-7.0); HEMATOCRIT 33.8 % (37.0-47.0); HEMOGLOBIN 11.6 g/dl (12.0-16.0); IMMATURE GRANULOCYTE % (AUTO) 0.4 % (0.0-5.0); LYMPHOCYTES # (AUTO) 1.2 K/uL (0.60-3.4); LYMPHOCYTES % (AUTO) 22.8 (10.0-50.0); MEAN CORPUSCULAR HEMOGLOBIN 30.6 pg (27.0-31.0); MEAN CORPUSCULAR HGB CONC 34.3 (31.8-35.4); MEAN CORPUSCULAR VOLUME 89.2 fl (81.0-99.0); MONOCYTES # (AUTO) 0.5 K/uL (0.4-2.0); MONOCYTES % (AUTO) 9.7 (0-10); NEUTROPHILS # (AUTO) 3.5 K/ul (2.0-6.9); NEUTROPHILS % (AUTO) 66.1 % (42.2-75.2); PLATELET COUNT 171 10^3/uL (140-440); RDW COEFFICIENT OF VARIATION 12.6 % (11.6-14.8); RED BLOOD COUNT 3.79 10^6/ul (4.20-5.40); WHITE BLOOD COUNT 5.26 K/ul (4.6-10.2)
[2021-06-26 05:16] LABS: ALANINE AMINOTRANSFERASE 52.7 U/L (0-35); ALBUMIN 3.65 g/dL (3.5-5.0); ASPARTATE AMINO TRANSFERASE 61.6 U/L (14-36); BILIRUBIN,TOTAL 0.4 mg/dL (0.2-1.3); CALCIUM 8.56 mg/dL (8.4-10.2); CARBON DIOXIDE 22.7 mmol/L (22-30.0); CREATININE 0.7 mg/dL (0.60-1.30); GLUCOSE 98.6 mg/dL (74-106); POTASSIUM 3.89 mmol/L (3.5-5.1); SODIUM 128.5 mmol/L (134.5-145); TOTAL PROTEIN 5.87 g/dL (6.3-8.2)
[2021-06-26] MEDS ORDERED: ELIQUIS PO SCH (09:00)
[2021-06-26] MEDS ORDERED: CARDIZEM PO SCH (09:00)
[2021-06-26] MEDS: ZEBETA PO SCH (09:14)
[2021-06-26] MEDS: K-DUR PO SCH (09:15)
--- NOTE | 2021-06-26 13:50 | CT ---
EXAM: CT Abdomen Pelvis HISTORY: Abdominal pain, belching COMPARISON: None TECHNIQUE: CT of the Abdomen Pelvis was performed without and with IV contrast. Coronal and sagital reformats were obtained. FINDINGS: Clear lung bases. Pectus excavatum deformity with prompt heart size. Distended gallbladder without surrounding inflammatory changes. Nonspecific mild periportal edema. Liver otherwise unremarkable. A few splenic calcified granulomas. Pancreas, adrenal glands, and kid neys are unremarkable. No evidence of urolithiasis. No adenopathy. Bladder unremarkable. Small vers us absent uterus. Nondistended stomach. No bowel dilation. Colonic diverticulosis. Normal appendix. Normal diameter a nayan. Mild atherosclerotic calcifications. No acute osseous abnormality. IMPRESSION: 1. No acute intra-abdominal findings. 2. Nonspecific gallbladder distension. If indicated, ultrasound could further evaluate. 3. Diverticulosis. All CT scans are performed using dose optimization techniques as appropriate to the performed exam an d include at least one of the following: Automated exposure control, adjustment of the mA and/or kV according t o size, and the use of iterative reconstruction technique.
[2021-06-26 14:36] VITALS: BP 117/62; TEMP 97.8
--- NOTE | 2021-06-26 15:16 | US ---
EXAM: Carotid duplex ultrasound. HISTORY: Hypertension. Weakness. COMPARISON: None. FINDINGS: Evaluation of the right and left carotid and vertebral arteries was performed using lacey scale, color doppler, and spectral doppler. Right cervical carotid: Moderate calcified atherosclerotic plaque in the right internal carotid arter y. Peak systolic velocity right ICA 142.3cm/s. Velocity right CCA 84.6cm/s. Velocity ratio right ICA :CCA 1.7. Left cervical carotid: Moderate calcified atherosclerotic plaque in the left internal carotid artery. Peak systolic velocity left ICA 135.4cm/s. Velocity left CCA 67.3cm/s. Velocity ratio left ICA:CCA 2.0. Vertebral arteries: Normal, antegrade flow. The internal carotid arteries are tortuous bilaterally. IMPRESSION: Moderate calcified atherosclerosis with evidence of moderate luminal stenosis of the cervical interna l carotid arteries bilaterally (50 - 69%). Normal flow in the right and left vertebral arteries.
--- NOTE | 2021-06-27 11:08 | CM.DICTOOL ---
ADMISSION: 06/24/21 11:25 DISCHARGE: June DATE OF SERVICE: 06/26/21 FINAL DIAGNOSIS HYPONATREMIA HYPOKALEMIA GENERALIZED WEAKNESS ATRIAL FIBRILLATION NONCOMPLIANCE WITH MEDICATIONS, RECOMMENDATIONS, LIFESTYLE AND FOLLOW-UPS HX: ATRIAL FIBRILLATION WITH RVR A-FIB WITH CARDIOVERSION HYPERTENSION SHE STATED SHE LIKES TO TAKE NATURAL ALTERNATIVES. SHE HAS PREVIOUSLY SEEN DR. PANDYA HYPERTHYROIDISM NON-COMPLIANCE WITH MEDICATIONS, LIFESTYLE, RECOMMENDATIONS, AND FOLLOW-UP PAST SURGICAL HISTORY: TONSILLECTOMY HYSTERECTOMY CODE STATUS: FULL CODE LAST VITALS Temp Pulse Resp BP Pulse Ox 97.9 F 99 H 18 168/71 H 98 06/26/21 04:31 06/26/21 04:31 06/26/21 04:31 06/26/21 04:31 06/26/21 04:31 TAKE THESE MEDICATIONS AT HOME Apixaban (Apixaban 5 Mg Tab) 2.5 mg PO BID [facility] Last Admin: 06/26/21 09:15 Dose: 2.5 mg Bisoprolol Fumarate (Bisoprolol Fumarate 5 Mg Tablet) 2.5 mg PO BID [facility] Last Admin: 06/26/21 09:14 Dose: 2.5 mg Diltiazem HCl (Diltiazem Hcl 60 Mg Tablet) 60 mg PO BID [facility] Last Admin: 06/26/21 09:15 Dose: 60 mg ALLERGIES hydrocodone Adverse Reaction (Verified 06/20/21 02:23) DISCONTINUED MEDICATIONS NONE NEW PRESCRIPTIONS: NONE SMOKING: N/A DISEASE SPECIFIC EDUCATION: HYPONATREMIA HYPOKALEMIA ACTIVITY RESTRICTIONS MD FOLLOW UPS DIET MEDICATION REGIMEN PANDEMIC PRECAUTIONS LAB REVIEW: 06/26/21 04:44 06/26/21 04:44 06/26/21 04:44: Sodium 128.5 L, Potassium 3.89, Chloride 99.0, Carbon Dioxide 22.7, Anion Gap 10.69, BUN 14.0, Creatinine 0.70, Estimated GFR (MDRD) 81.00, BUN/Creatinine Ratio 20.00, Glucose 98.6, Calcium 8.56, Total Bilirubin 0.40, AST 61.6 H D, ALT 52.7 H D, Alkaline Phosphatase 106.0, Total Protein 5.87 L, Albumin 3.65, Globulin 2.22, Albumin/Globulin Ratio 1.64 06/26/21 04:44: WBC 5.26, RBC 3.79 L, Hgb 11.6 L, Hct 33.8 L, MCV 89.2, MCH 30.6, MCHC 34.3, RDW Coeff of Philippe 12.6, Plt Count 171, Immature Gran % (Auto) 0.4, Neut % (Auto) 66.1, Lymph % (Auto) 22.8, [place] % (Auto) 9.7, Eos % (Auto) 0.4, Baso % (Auto) 0.6, Neut # (Auto) 3.5, Lymph # (Auto) 1.2, [place] # (Auto) 0.5, Eos # (Auto) 0.0, Baso # (Auto) 0.0, Immature Gran # (Auto) 0.0 PLAN: DISCHARGE: HOME TODAY WITH SPOUSE, INDEPENDENT ACTIVITY: UP TOLERATED WITH FREQUENT REST PERIODS STAY IN DOORS AND REST, NO STRENUOUS ACTIVITIES BLEEDING PRECAUTIONS CHANGE POSITIONS SLOWLY, MAKING SURE NO POSITIONAL DIZZINESS OR LIGHTHEADEDNESS OCCURS PANDEMIC PRECAUTIONS DIET: HEART HEALTHY 1500 ML 24 HOUR FLUID RESTRICTION FOLLOW-UP: SEE DR. LEAL/ SEBASTIEN GATES APRN/ MAY CAMACHO APRN IN THE OFFICE ON JULY 04, 2021 @ [address] TRIVEDI ([employer]OCIATE) 2020 CODE STATUS: FULL CODE MRS THURSTON IS ALERT AND ORIENTED X 4. SHE HAS BEEN GETTING UP TOLERATED AND WALKING IN HALLWAY WITHOUT AN ASSISTIVE DEVICE. NO LOB. NORMALLY SHE IS INDEPENDENT WITH ALL ASPECTS AT HOME. SHE DID REPORT A " BEING TIRED". NO SOA AND LUNGS ARE CLEAR. SKIN IS WARM AND DRY AND INTACT. NO UNUSUAL BRUISING OR BLEEDING NOTED OR REPORTED. SHE IS CONTINENT OF BOWEL AND BLADDER WITH LAST BM X 2 ON 06/25. APPETITE IS FAIR WITH MAINLY 75% MEAL CONSUMPTION. SHE HAS BEEN FOLLOWING THE 1500 ML 24 HOUR FLUID RESTRICTION. PHYSICAL THERAPY DID PERFORM CONSULT 06/25 AND DETERMINED THAT A EVAL WAS NOT INDICATED. SHE LIVES WITH HER AND VERBALIZED FOLLOW UP APPOINTMENTS WITH DR. LEAL AND DR. TRIVEDI. GLENNYMD SEBASTIEN HORAN, SAWMILL TALLY CLERKJimbo CAMACHO, SAWMILL TALLY CLERK
--- NOTE | 2021-06-27 11:27 | PN ---
DATE OF SERVICE: 06/25/21 SUBJECTIVE: The patient was seen and examined with the nurse practitioner. Sodium is better but she is hypokalemic now. The patient is going to be on regular admission, telemetry as the patient has atrial fibrillation and needs to be monitored on observation which is 24 hours but she is going to need more monitoring with potassium supplements. The patient was seen and examined with the nurse practitioner. The patient's cardiovascular status is stable. She is tolerating medications like Zebeta and Cardizem very well. TIME SPENT: More than 30 minutes. Plan and coordination of the patient's care discussed in the presence of nurse. SUHAS
--- NOTE | 2021-06-27 13:15 | PN ---
DATE OF SERVICE: 06/26/21 SUBJECTIVE: 80-year-old white female hospitalized with hyponatremia, fatigue with atrial fibrillation. The patient's condition has improved. Atrial fibrillation has normal ventricular response. Hyponatremia is a lot better with sodium of 129. She had hypokalemia which has resolved now her potassium is 3.89. REVIEW OF SYSTEMS: CONSTITUTIONAL: No night sweats. No fatigue, malaise, lethargy. No fever or chills. HEENT: Eyes: No visual changes. No eye pain. No eye discharge. ENT: No runny nose. No epistaxis. No sinus pain. No sore throat. No odynophagia. No congestion. RESPIRATORY: No cough, no congestion. No hemoptysis. No shortness of breath. CARDIOVASCULAR: No angina symptoms. No CHF symptoms. No atypical chest pain for CAD. No palpitations. No PND. No orthopnea. GASTROINTESTINAL: She has belching off and on. No abdominal pain. No nausea or vomiting. No diarrhea or constipation. No hematemesis. No hematochezia. GENITOURINARY: No urgency. No frequency. No dysuria. No hematuria. No obstructive symptoms. No discharge. No pain. No significant abnormal bleeding. MUSCULOSKELETAL: No musculoskeletal pain; no joint swelling. NEUROLOGICAL: No headache. No neck pain. No syncope. No seizures. No dizziness. PSYCHIATRIC: Not anxious. No depression. No suicidal thoughts. No homicidal thoughts. SKIN: No rash. No lesions. No wounds. ENDOCRINE: No unexplained weight loss. No weight gain. HEMATOLOGIC/LYMPHATIC: No anemia. No purpura. No petechiae. No prolonged or excessive bleeding. No palpable lymph nodes. PHYSICAL EXAMINATION: VITAL SIGNS: Temperature 97.9, pulse 90/min irregular, respiratory rate 18, blood pressure 160/70, pulse ox 98%. It should be noted that the patient's blood pressure is always up in the morning but then it settles down after she takes the medications. HEENT: Head normocephalic, atraumatic. Eyes: Extraocular muscles are intact. Pupils are equal, round and reactive to light and accommodation. Ears: No lesions. Nose appeared normal. Throat: No exudate or erythema. NECK: Supple. No JVD, no carotid bruit. No lymphadenopathy or thyromegaly. LUNGS: Clear to auscultation. Percussion note normal. Chest symmetrical. HEART: S1, S2, irregularly irregular. No murmurs. No cyanosis or clubbing. No ascites. Pulses: Dorsalis pedis and posterior tibial pulses +1 to +2 bilaterally. ABDOMEN: Soft. Nontender. Bowel sounds active. No CVA tenderness. No mass felt. EXTREMITIES: No edema. Full range of motion of all extremities, equal. NEUROLOGIC: No focal deficit. Cranial nerves II through XII are grossly intact. No headache. No double vision. SKIN: Not dry. Intact. Turgor - normal. LYMPHATIC: No palpable lymph nodes/no lymphedema. MUSCULOSKELETAL: Normal joints with no swelling. Muscle tone is normal. LABS: Hemoglobin 11.6, hematocrit 33, WBC 5,200, normal differential. Creatinine 0.7, BUN 14, potassium 3.8, sodium 128.5. Covid negative. ASSESSMENT: 1. Hyponatremia seems to be resolving. 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 2. Atrial fibrillation persists. 3. Hypertension, labile. PLAN: 1. Continue Zebeta, Cardizem and Eliquis. 2. The patient is advised to restrict her fluid intake. 3. She is going to have a carotid scan and CT scan of abdomen and pelvis done before discharge. 4. She is to be seen as an outpatient on Thursday. TIME SPENT: More than 30 minutes. Plan and coordination of the patient's care discussed in the presence of nurse. SUHAS
--- NOTE | 2021-06-27 14:00 | DS ---
DATE OF SERVICE: 06/26/21 CODE STATUS: FULL CODE FINAL DIAGNOSIS: 1. HYPONATREMIA 2. HYPOKALEMIA 3. ELECTROLYTE IMBALANCE WITH HISTORY OF ACUTE GASTROENTERITIS 4. ATRIAL FIBRILLATION 5. HYPERTENSION 6. BMI OF 16, UNDERWEIGHT 7. HISTORY OF BELCHING LAST VITALS Temp Pulse Resp BP Pulse Ox 97.9 F 99 H 18 168/71 H 98 06/26/21 04:31 06/26/21 04:31 06/26/21 04:31 06/26/21 04:31 06/26/21 04:31 DISCHARGE INSTRUCTIONS: 1. DISCHARGE: HOME TODAY WITH SPOUSE, INDEPENDENT 2. MD FOLLOW-UP: SEE DR. LEAL/SEBASTIEN GATES APRN/MAY CAMACHO APRN IN THE OFFICE ON JULY 04, 2021 @ 1045 AM. 3. FOLLOWUP WITH DR. PULLIAM (FORMULATION SCIENTIST) 2020. MEDICATIONS AT DISCHARGE: Continue Apixaban (Apixaban 5 Mg Tab) 2.5 mg PO BID [facility] Last Admin: 06/26/21 09:15 Dose: 2.5 mg Bisoprolol Fumarate (Bisoprolol Fumarate 5 Mg Tablet) (Zebeta) 2.5 mg PO BID [facility] Last Admin: 06/26/21 09:14 Dose: 2.5 mg Diltiazem HCl (Diltiazem Hcl 60 Mg Tablet) 60 mg PO BID [facility] Last Admin: 06/26/21 09:15 Dose: 60 mg NEW PRESCRIPTIONS: NONE DISCONTINUED MEDICATIONS: NONE DIET INSTRUCTIONS: HEART HEALTHY 1500 ML 24 HOUR; FLUID RESTRICTION ACTIVITY: UP TOLERATED WITH FREQUENT REST PERIODS STAY IN DOORS AND REST, NO STRENUOUS ACTIVITIES BLEEDING PRECAUTIONS CHANGE POSITIONS SLOWLY, MAKING SURE NO POSITIONAL DIZZINESS OR LIGHTHEADEDNESS OCCURS PANDEMIC PRECAUTIONS SMOKING: N/A DISEASE SPECIFIC EDUCATION: HYPONATREMIA HYPOKALEMIA ACTIVITY RESTRICTIONS MD FOLLOW UPS DIET MEDICATION REGIMEN PANDEMIC PRECAUTIONS HOSPITAL COURSE: 80-year-old white female was hospitalized with hyponatremia and fatigue. The patient also developed hypokalemia. The patient was treated with NS. She was watched for fluid overload which she did not have. Potassium supplements were given. Discharge potassium was practically normal. Serum sodium was close to 129. The patient has compulsive water drinking. She was strongly advised to cut down on it. Atrial fib persists. The patient has appointment to see Dr. Pulliam in July. The patient has been tried on Beta Blockers like Carvedilol, Metoprolol which didn't agree with her. She has been put on Zebeta, has been able to take that. The patient has continued to take Cardizem. The patient is very difficult to convince her to take any medications. The patient has a history of atrial fibrillation 3 years ago which was cardioverted. After that she was put on Eliquis and a few other medications which she stopped taking. She has been restarted on medications again in the past 4 to 6 weeks. As mentioned above, the patient couldn't tolerate Metoprolol and Carvedilol. She was given 0.5 mg Zebeta twice a day with Cardizem. The patient has responded well to this combination with her blood pressure in better control along with her ventricular rate. She was strongly advised to followup with Dr. Pulliam in July. LABS: Hemoglobin 11.6, hematocrit 33, WBC 5,200, normal differential. Creatinine 0.7, BUN 14, potassium 3.8. Covid negative. Condition at time of discharge stable. TIME SPENT: More than 60 minutes. cc: Dr. Pulliam, [employer] Rolling Machine T[employer] [id number] [facility] [address] [place] [address] [facility]
== END 2021-06-26 15:10 | disposition home or self-care (01) | DRG 310 ==
LOC: MEDSURG A 08:46 → ED 08:46 → OBSVTOIN 11:25 → MEDSURG A 12:13
PROVIDERS: ADMIT Internal Medicine; ATTEND Internal Medicine
DX: R05 Cough; R63.6 Underweight; E87.6 Hypokalemia; R53.1 Weakness; Z91.14 Patient's other noncompliance with medication regimen; R20.0 Anesthesia of skin; Z20.822 Contact with and (suspected) exposure to COVID-19; R53.81 Other malaise; I48.91 Unspecified atrial fibrillation; I10 Essential (primary) hypertension; E87.8 Other disorders of electrolyte and fluid balance, not elsewhere classified; R00.2 Palpitations